=== PATIENT | female | born 1965 | race Caucasian/White ===

== ENCOUNTER 2017-06-19 09:19 | Emergency (ER) | payer MEDICAID ==
[~2017-06-19] VITALS: Ht 157.5 cm; Wt 86.6 kg
[~2017-06-19 09:19] MED LIST: ALBU17AE23 IH; ALPR0.5T PO; FURO40TA4 PO; HYDR-3458 PO; LISI20TA PO; PRCD5U PO; ROPI1TAB PO; SMV20T PO
--- NOTE | 2017-06-19 09:33 | ED Lower Extremity ---
General Chief Complaint: Lower Extremity Stated Complaint: R FOOT/LEG PAIN Source: patient History of Present Illness Time seen by provider: 09:30 Initial Comments PT IS HERE VISITING HER MOTHER IN HOSPITAL LAST PM, SHE WAS ASSISTING HER MOTHER TRANSFER OFF THE COMMODE TO THE BED, AND MOTHER LOST BALANCE AND SHE FELL/LEANED HARD AGAINST PT. 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 PALENCIA ORTHO: DR. ANAND Allergies and Home Medications Allergies Coded Allergies: Aspirin (Unverified Allergy, N/V, 05/21/10) Azithromycin (Unverified Allergy, SOB, SWELLING, HIVES, 05/21/10) Erythromycin Base (Unverified Allergy, SORES AROUND MOUTH, 05/21/10) Gabapentin (Unverified Allergy, SORES AROUND MOUTH, 05/21/10) Pregabalin (Unverified Allergy, SORES AROUND MOUTH, ITCHING, 05/21/10) Tetracycline (Unverified Allergy, SORES AROUND MOUTH, 05/21/10) Home Medications Albuterol 17 Gm Aerosol, 17 GM IH NEEDED, (Reported) Alprazolam 0.5 Mg Tablet, 0.5 MG PO for ANXIETY, (Reported) Hydrocodone/Acetaminophen 1 Each Tablet, 1 EACH PO for PAIN, (Reported) Lisinopril 20 Mg Tablet, 1 EACH PO DAILY, (Reported) Simvastatin 20 Mg Tab, 20 MG PO HS, (Reported) Constitutional: no symptoms reported Musculoskeletal: see HPI Skin: no symptoms reported Psychiatric/Neurological: See HPI, Tingling (IN RIGHT FOOT/TOES) Past Liydfpg-Khdgpw-Iqqgwb Hx Patient Social History Type Used: Cigarettes Former Smoker/When Quit: Jul 16, 2008 Recent Foreign Travel: No Contact w/Someone Who Travel: No Surgeries HX Surgeries: Yes (2 leg amputations--HAS LEFT BKA; hysterectomy, gallbladder , , 3 surgeries on LEFT LEG) Surgeries: Amputation, Section, Gallbladder, Hysterectomy, Orthopedic Respiratory Hx Respiratory Disorders: Yes Respiratory Disorders: Asthma Cardiovascular Hx Cardiac Disorders: No Neurological Hx Neurological Disorders: No Reproductive System Hx Reproductive Disorders: No Sexually Transmitted Disease: No Genitourinary Hx Genitourinary Disorders: No Gastrointestinal Hx Gastrointestinal Disorders: No Musculoskeletal Hx Musculoskeletal Disorders: Yes (LEFT BKA FROM OSTEOMYELITIS) Musculoskeletal Disorders: Amputee Endocrine Hx Endocrine Disorders: No HEENT HX ENT Disorders: No Cancer Hx Cancer: No Psychosocial Hx Psychiatric Problems: No Integumentary HX Skin/Integumentary Disorder: Yes (OSTEOMYELITIS) Blood Transfusions Hx Blood Disorders: No Physical Exam Vital Signs Vital Sign - Last 12Hours 06/19/17 09:31 Temp 97.5 Pulse 71 Resp 18 B/P (MAP) 148/90 Pulse Ox 97 O2 Delivery Room Air Capillary Refill : General Appearance: WD/WN, no apparent distress Cardiovascular: normal peripheral pulses (+3/4) Hips: right hip non-tender Legs: right leg other (TENDERNESS TO RIGHT LOWER LEG) Knees: right knee other (TENDERNESS TO RIGHT KNEE) Ankles: right ankle other (TENDERNESS TO RIGHT ANKLE) Feet: right foot other (TENDERNESS TO RIGHT FOOT. 1+ EDEMA OF RIGHT FOOT AND LEG. MOTOR/SENSORY/VASCULAR INTACT ON RIGHT. 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, no motor/sensory deficits, alert, normal mood/affect, oriented x 3 Skin: normal color, warm/dry, other (NO EXTERNAL EVIDENCE OF TRAUMA) Progress/Results/Core Measures Results/Orders My Orders Orders - PAT NAJERA DO Tibia/Fibula, Right, 2 Views (06/19/17 09:38) Knee, Right, 3 Views (06/19/17 09:38) Foot, Right, 3 View (06/19/17 09:38) Vital Signs/I&O Vital Sign - Last 12Hours 06/19/17 09:31 Temp 97.5 Pulse 71 Resp 18 B/P (MAP) 148/90 Pulse Ox 97 O2 Delivery Room Air Diagnostic Imaging Comments XRAYS RIGHT FOOT, TIB/FIB, KNEE--NO ACUTE PROCESS, PER RADIOLOGIST REPORT @ 1025 Reviewed: Reviewed by Me Departure Impression Impression: Primary Impression: RIGHT FOOT AND LEG STRAIN Disposition: HOME, SELF-CARE Condition: Stable Departure-Patient Inst. Referrals: NO,LOCAL PHYSICIAN (PCP) Primary Care Physician LORENA PALENCIA MD, ROBERT F DO Patient Instructions: Sprain (DC) Add. Discharge Instructions: ACTIVITIES TOLERATED TYLENOL AND MOTRIN AND YOUR HOME HYDROCODONE NEEDED FOR PAIN USE YOUR WALKER AT ALL TIMES FOLLOW UP WITH YOUR DR IN 1 WEEK IF NO IMPROVEMENT All discharge instructions reviewed with patient and/or family. Voiced understanding. PAT NAJERA DO Jun 19, 2017 09:33
--- NOTE | 2017-06-19 10:07 | Diagnostic Imaging Report ---
FOOT, RIGHT, 3 VIEW COMPARISON: None available. INDICATION: Right foot pain. TECHNIQUE: Non-weight bearing AP, oblique, and lateral views of the foot. FINDINGS: No fracture or traumatic malalignment. No evidence of metatarsal stress fracture. Normal osseous mineralization. No discrete soft tissue swelling. IMPRESSION: 1. No acute fracture or traumatic malalignment. Dictated by: Dictated on workstation # [id number]
--- NOTE | 2017-06-19 10:08 | Diagnostic Imaging Report ---
INDICATION: Right knee pain. COMPARISON: Right knee radiographs of 03/12/2016. TECHNIQUE: 3 nonweightbearing views of right knee. FINDINGS: There is no acute fracture or traumatic malalignment. Joint spaces are well-maintained. No mineralized loose bodies. No knee joint effusion. IMPRESSION: Negative right knee radiographs. Dictated by: Dictated on workstation # [id number]
--- NOTE | 2017-06-19 10:13 | Diagnostic Imaging Report ---
INDICATION: Right lower leg pain. COMPARISON: Right knee radiograph performed concurrently. FINDINGS AND IMPRESSION: 1. No fracture or focal osseous lesion. 2. No soft tissue abnormality of the right lower leg by radiography. Dictated by: Dictated on workstation # [id number]
[2017-06-19 10:48] VITALS: BP 140/100
== END 2017-06-19 10:48 | disposition home or self-care (01) ==
LOC: EDUNIT# 09:19 → ER 09:21
DX: S86.911A Strain of unspecified muscle(s) and tendon(s) at lower leg level, right leg, initial encounter (principal); J45.909 Unspecified asthma, uncomplicated; Z89.512 Acquired absence of left leg below knee; Z90.710 Acquired absence of both cervix and uterus; Z87.59 Personal history of other complications of pregnancy, childbirth and the puerperium; Z98.890 Other specified postprocedural states; W51.XXXA Accidental striking against or bumped into by another person, initial encounter
CPT/HCPCS: 73562; 73590; 73630; 99283

== ENCOUNTER 2018-12-01 15:29 | Emergency (ER) | payer MEDICAID ==
[~2018-12-01] VITALS: Ht 157.5 cm; Wt 90.3 kg
--- OUTSIDE RECORDS SUMMARY | 2018-12-01 15:35 | XMS REPORT | Encounter Summary ---
Author Author [facility] Organization [facility] Address Unknown Phone Unavailable Care Team Providers Care Tandem Operator Name Role Phone Desmond Martinez MD Unavailable Anibal Kuhn MD Unavailable Chayito Evans MD Unavailable Graham Pichardo MD Unavailable Kaity Bronson RD Unavailable No Pcp, Na PCP Unavailable Encounter Details Care Team Description Date Type Department Karissa Sharif MD [address] [facility] [address] [place], [place] [id number] Arrived 11/27/2018 Hospital [facility] Radiology [address] [facility] [address] [place], [place] [id number] Social History Date Tobacco Use Types Packs/Day Years Used Quit: 11/14/1995 Former Smoker Cigarettes Smokeless Tobacco: Never Used Alcohol Use Drinks/Week oz/Week Comments Yes rarely Sex Assigned at Date Recorded Not on file Industry Job Start Date Occupation Not on file Not on file Not on file Travel End Travel History Travel Start No recent travel history available. as of this encounter Functional Status Date of Assessment Functional Status Response 08/02/2018 Does the patient have a hearing impairment: No 08/02/2018 Does the patient have a visual impairment: Yes 08/02/2018 Does the patient have impaired ambulation: Yes 08/02/2018 Does the patient have an activity of daily living No (ADL) impairment: 08/02/2018 Does the patient have an instrumental activity of No daily living (IADL) impairment: Date of Assessment Cognitive Status Response 08/02/2018 Does the patient have a cognitive impairment: Yes as of this encounter Plan of Treatment Not on fileas of this encounter Procedures Comments Procedure Name Priority Date/Time Associated Diagnosis US TRANSVAGINAL Routine 11/27/2018 Pelvic pain 7:38 AM [employer]IST US PELVIS NON OB COMP Routine 11/27/2018 Pelvic pain 7:38 AM VISITOR SERVICES SPECIALIST in this encounter Results * US TRANSVAGINAL (11/27/2018 7:38 AM VISITOR SERVICES SPECIALIST) Impressions Performed At Prior hysterectomy with unremarkable ultrasound appearance of the vaginal cuff. [facility] No evidence of pelvic mass. Approved by Mitch Leonardo M.D. on 11/27/2018 11:47 AM By my electronic signature, I attest that I have personally reviewed the images for this examination and formulated the interpretations and opinions expressed in this report Finalized by Macho Lopez M.D. on 11/27/2018 5:55 PM. Dictated by Mitch Leonardo M.D. on 11/27/2018 8:55 AM. Narrative Performed At Ultrasound of the pelvis [facility] Clinical Indication: Female, 52 years; pelvic pain, previous hysterectomy. Technique: Multiple grayscale sonographic images were obtained of the pelvis transvaginally and transabdominally, with additional color Doppler and spectral Doppler acquisitions. Comparison: None. Findings: Uterus is not visualized compatible with reported hysterectomy. Ovaries are not visualized. The right and left adnexa are unremarkable. Vaginal cuff is unremarkable without significant increased internal blood flow. No evidence of pelvic mass. There is no significant pelvic free fluid. Procedure Note Interface, Radiant Results - 11/27/2018 5:58 PM VISITOR SERVICES SPECIALIST Ultrasound of the pelvis Clinical Indication: Female, 52 years; pelvic pain, previous hysterectomy. Technique: Multiple grayscale sonographic images were obtained of the pelvis transvaginally and transabdominally, with additional color Doppler and spectral Doppler acquisitions. Comparison: None. Findings: Uterus is not visualized compatible with reported hysterectomy. Ovaries are not visualized. The right and left adnexa are unremarkable. Vaginal cuff is unremarkable without significant increased internal blood flow. No evidence of pelvic mass. There is no significant pelvic free fluid. IMPRESSION Prior hysterectomy with unremarkable ultrasound appearance of the vaginal cuff. No evidence of pelvic mass. Approved by Mitch Leonardo M.D. on 11/27/2018 11:47 AM By my electronic signature, I attest that I have personally reviewed the images for this examination and formulated the interpretations and opinions expressed in this report Finalized by Macho Lopez M.D. on 11/27/2018 5:55 PM. Dictated by Mitch Leonardo M.D. on 11/27/2018 8:55 AM. Performing Organization Address City/State/Zipcode Phone Number [facility] * US PELVIS NON OB COMP (11/27/2018 7:38 AM VISITOR SERVICES SPECIALIST) Impressions Performed At Prior hysterectomy with unremarkable ultrasound appearance of the vaginal cuff. [facility] No evidence of pelvic mass. Approved by Mitch Leonardo M.D. on 11/27/2018 11:47 AM By my electronic signature, I attest that I have personally reviewed the images for this examination and formulated the interpretations and opinions expressed in this report Finalized by Macho Lopez M.D. on 11/27/2018 5:55 PM. Dictated by Mitch Leonardo M.D. on 11/27/2018 8:55 AM. Narrative Performed At Ultrasound of the pelvis [facility] Clinical Indication: Female, 52 years; pelvic pain, previous hysterectomy. Technique: Multiple grayscale sonographic images were obtained of the pelvis transvaginally and transabdominally, with additional color Doppler and spectral Doppler acquisitions. Comparison: None. Findings: Uterus is not visualized compatible with reported hysterectomy. Ovaries are not visualized. The right and left adnexa are unremarkable. Vaginal cuff is unremarkable without significant increased internal blood flow. No evidence of pelvic mass. There is no significant pelvic free fluid. Procedure Note Interface, Radiant Results - 11/27/2018 5:58 PM VISITOR SERVICES SPECIALIST Ultrasound of the pelvis Clinical Indication: Female, 52 years; pelvic pain, previous hysterectomy. Technique: Multiple grayscale sonographic images were obtained of the pelvis transvaginally and transabdominally, with additional color Doppler and spectral Doppler acquisitions. Comparison: None. Findings: Uterus is not visualized compatible with reported hysterectomy. Ovaries are not visualized. The right and left adnexa are unremarkable. Vaginal cuff is unremarkable without significant increased internal blood flow. No evidence of pelvic mass. There is no significant pelvic free fluid. IMPRESSION Prior hysterectomy with unremarkable ultrasound appearance of the vaginal cuff. No evidence of pelvic mass. Approved by Mitch Leonardo M.D. on 11/27/2018 11:47 AM By my electronic signature, I attest that I have personally reviewed the images for this examination and formulated the interpretations and opinions expressed in this report Finalized by Macho Lopez M.D. on 11/27/2018 5:55 PM. Dictated by Mitch Leonardo M.D. on 11/27/2018 8:55 AM. Performing Organization Address City/State/Zipcode Phone Number [facility] in this encounter Visit Diagnoses Diagnosis Pelvic pain in this encounter
--- OUTSIDE RECORDS SUMMARY | 2018-12-01 15:35 | XMS REPORT | Clinical Summary ---
Author Author [facility] Organization [facility] Address Unknown Phone Unavailable Care Team Providers Care Compressor Engineer Name Role Phone Desmond Martinez MD Unavailable Anibal Kuhn MD Unavailable Chayito Evans MD Unavailable Graham Pichardo MD Unavailable Kaity Bronson RD Unavailable No Pcp, Na PCP Unavailable Source Comments Some departments are not documenting in the electronic medical record. If you do not see the information that you expected, contact Release of Information in the Health Information Management department at [phone] for further assistance in locating additional records.[facility] Allergies Comments Active Allergy Reactions Severity Noted Date Allergy recorded in SMS: Aspirin~Reactions: GI UPSET Aspirin 03/02/2007 Allergy recorded in SMS: Zithromax~Reactions: ANAPHYLAXIS Azithromycin 08/27/2005 Allergy recorded in SMS: ERYTHROMYCIN~Reactions: NAUSEA Erythromycin 08/27/2005 Allergy recorded in SMS: NEURONTIN~Reactions: RASH Gabapentin 06/02/2007 Vomits up Blood. Ibuprofen VOMITING Low 01/27/2017 Mouth Sores Pregabalin SEE COMMENTS 02/18/2011 Allergy recorded in SMS: TETRACYCLINE~Reactions: MOUTH SORES Tetracycline 08/27/2005 Medications End Date Status Medication Sig Dispensed Refills Start Date Active SIMVASTATIN (ZOCOR PO) Take by 0 mouth daily. Active HYDROCODONE Take by 0 BIT/ACETAMINOPHEN mouth as (VICODIN PO) Needed. Active ALPRAZOLAM (XANAX PO) Take 1 Tab by 0 mouth as Needed (up to three a day). Active ALBUTEROL SULFATE Inhale 2 0 (VENTOLIN IN) Puffs by mouth as Needed. Active ONDANSETRON HCL (ZOFRAN Take 4 mg by 0 PO) mouth as Needed. Active furosemide (LASIX) 20 mg Take 40 mg by 0 tablet mouth every morning. Active potassium chloride SR Take 20 mEq 0 (K-DUR) 20 mEq tablet by mouth daily. Take with a meal and a full glass of water. Active atorvastatin (LIPITOR) 40 Take 40 mg by 0 mg tablet mouth daily. Active mupirocin (BACTROBAN) 2 % Apply 0 topical ointment topically to affected area three times daily. Active MULTIVITAMIN WITH Take by 0 MINERALS (MULTIVITAMIN & mouth. MINERAL FORMULA PO) Active cholecalciferol (VITAMIN Take 6,000 0 D-3) 1,000 units tablet Units by mouth daily. Active aspirin EC 81 mg tablet Take 81 mg by 0 mouth daily. Take with food. Active METOPROLOL TARTRATE PO Take by 0 mouth. Active magnesium 0 Active fenofibrate (LIPOFEN) 50 Take 164 mg 0 mg capsule by mouth daily. Take with food. Active BENEFIBER (WHEAT DEXTRIN) Take 50 g/day 0 POIndications: lower by mouth triglycerides daily. Active amitriptyline (ELAVIL) 25 Take one 90 tablet 3 02/14/201 mg tabletIndications: tablet by 8 Migraine Prevention, mouth at Neuropathic Pain bedtime for two weeks. If tolerated, increase to two tablets by mouth at bedtime daily. Active Problems Problem Noted Date Personal history of ovarian cancer 01/05/2017 Left breast mass 01/05/2017 Overview: DIAGNOSIS: Left breast lump/pain HISTORY: Ms. Diop is a female who presented [facility] on [facility]06[facility]2017 at age 51 for evaluation of left breast lump and pain. She felt a left breast lump 6 months to 1 year earlier. She has had intermittent left breast pain for the past 6 months. BREAST IMAGING: Mammogram: -- Bilateral screening mammogram 01/14/15 ([place], [place]) revealed scattered fibroglandular densities. There were no suspicious masses, calcifications or architectural distortion. REPRODUCTIVE HEALTH: Age at first Menarche: 11 Age at First Live : 17 Age at Menopause: Surgical menopause in 1992, took HRT x 3-5 years : 9 Para: 4 : 8 months total PERTINENT PMH: Personal history of cervical cancer, asthma FAMILY HISTORY: Mother with breast cancer, sister with breast cancer, Maternal Aunt-Breast cancer, Maternal Great Grandmother-Breast cancer, 3 Maternal Great Aunts-Breast cancer PHYSICAL EXAM on PRESENTATION: Right - No palpable breast masses. No skin, nipple, or areolar change. Tenderness in IMF. Nipple pulls in with arm raised. Left - No palpable breast masses. No skin, nipple, or areolar change. Tenderness in IMF and UOQ. Increased density in UOQ. Nipple pulls in with arm raised. No supraclavicular or axillary adenopathy. REFERRED BY: Self Hypokalemia 11/20/2015 Lethargy 11/20/2015 Non morbid obesity 11/20/2015 Status post below knee amputation of left lower extremity 11/20/2015 Overview: Due to poorly healing fx with infection episodes of Visual blurriness 11/20/2015 Sleep apnea 11/20/2015 Asthma 11/20/2015 High cholesterol 11/20/2015 Fever 02/18/2011 Diarrhea 02/18/2011 Sweating 02/18/2011 Multiple URI 02/18/2011 Encounters Care Team Description Date Type Specialty Chico Martin MD General Question 11/28/2018 Telephone Obstetrics & Gynecology Chico Martin MD Arrived 11/27/2018 [facility] Radiology Encounter Chico Martin MD Encounter for screening for malignant neoplasm of cervix 11/22/2018 Hospital Lab Encounter Chico Martin MD Pelvic pain (Primary Dx); Vaginal pain; Cervical cancer screening; Urinary incontinence, unspecified type; Establishing care with new doctor, encounter for; Vaginal atrophy 11/22/2018 Office Visit Obstetrics & Gynecology Sita Johnson, NANCY Other (Patient left a voice message wanting to know if would be able to give her a referral to a [facility] Sc[facility] Single doctor due to concerns within her vaginal area. I spoke with Dr. Lawrence about the patient's concerns and she granted the referral. I spoke with the patient about putting in the referral to which she then told me she had made an appointment with Dr. Chico Martin for 11/22/2018. The patient was concerned with not having an earlier appointment. ) 10/31/2018 Telephone Oncology Selma Lawrence MD Atrophy of vagina (Primary Dx) 10/31/2018 Orders Only Oncology from Last 3 Months Family History Medical History Relation Name Comments Cancer Brother Cancer Father skin Heart Attack Father Heart Failure Father Hypertension Father Stroke Father Cancer-Breast Maternal Aunt Cancer-Breast Mother Hypertension Mother Cancer-Breast Other 3 mat gr aunts Cancer-Breast Other mat gr gma Cancer-Breast Sister Anesthetic Complication Neg Hx Arthritis Neg Hx Bleeding Disorders Neg Hx Cancer-Colon Neg Hx Cancer-Ovarian Neg Hx Cancer-Uterine Neg Hx Cervical Cancer Neg Hx Cleft Lip Neg Hx Cleft Palate Neg Hx Diabetes Neg Hx Heart Disease Neg Hx Migraines Neg Hx Miscarriages Neg Hx Rashes/Skin Problems Neg Hx Seizures Neg Hx Thyroid Disease Neg Hx Unknown to Patient Neg Hx VTE Neg Hx Relation Name Status Comments Brother Father Maternal Aunt Mother Other Other Sister Social History Date Tobacco Use Types Packs/Day Years Used Quit: 11/14/1995 Former Smoker Cigarettes Smokeless Tobacco: Never Used Alcohol Use Drinks/Week oz/Week Comments Yes rarely Sex Assigned at Date Recorded Not on file Industry Job Start Date Occupation Not on file Not on file Not on file Travel End Travel History Travel Start No recent travel history available. Last Filed Vital Signs Time Taken Vital Sign Reading 11/22/2018 8:10 AM MACHINE TECH Blood Pressure 130/83 11/22/2018 8:10 AM MACHINE TECH Pulse 81 08/02/2018 9:53 AM CDT Temperature 36.7 C (98 F) 08/02/2018 9:53 AM CDT Respiratory Rate 16 08/02/2018 9:53 AM CDT Oxygen Saturation 98% - Inhaled Oxygen - Concentration 11/22/2018 8:10 AM MACHINE TECH Weight 93.7 kg (206 lb 9.6 oz) 11/22/2018 8:10 AM MACHINE TECH Height 157.5 cm (5' 2") 11/22/2018 8:10 AM MACHINE TECH Body Mass Index 37.79 Plan of Treatment Health Maintenance Due Date Last Done Comments PHYSICAL (COMPREHENSIVE) 1970 EXAM HIV SCREENING 1978 DTAP/TDAP VACCINES (1 - 1981 Tdap) COLORECTAL CANCER 2013 SCREENING SHINGLES RECOMBINANT 2013 VACCINE (1 of 2) INFLUENZA VACCINE 06/14/2018 BREAST CANCER SCREENING 02/02/2019 02/02/2018, 01/06/2017 CERVICAL CANCER SCREENING 11/22/2021 11/22/2018 HEPATITIS C SCREENING Completed 03/06/2007 Procedures Comments Procedure Name Priority Date/Time Associated Diagnosis US TRANSVAGINAL Routine 11/27/2018 Pelvic pain 7:38 AM MACHINE TECH US PELVIS NON OB COMP Routine 11/27/2018 Pelvic pain 7:38 AM MACHINE TECH PAP THIN PREP 11/22/2018 11:17 AM MACHINE TECH from Last 3 Months Results * US TRANSVAGINAL (11/27/2018 7:38 AM MACHINE TECH) Impressions Performed At Prior hysterectomy with unremarkable [...] Interface, Radiant Results - 11/27/2018 5:58 PM MACHINE TECH Ultrasound of the pelvis Clinical Indication: Female, [...] PELVIS NON OB COMP (11/27/2018 7:38 AM MACHINE TECH) Impressions Performed At Prior hysterectomy with unremarkable [...] Interface, Radiant Results - 11/27/2018 5:58 PM MACHINE TECH Ultrasound of the pelvis Clinical Indication: Female, [...] City/State/Zipcode Phone Number [facility] RESULTS * PAP THIN PREP (11/22/2018 11:17 AM MACHINE TECH) Cytology [facility] [email or web address] Department of Pathology and Laboratory Medicine [address] [place] [address]. Office:[phone] CYTOLOGY REPORT NAME: HEATHER MUNGUIA CYTOLOGY #: [id number] MR #: [id number] ALT ID #: [id number] #: [id number] [place] [facility] [place] DATE OF PROCEDURE: 11/22/2018 11:17 AGE:52 SEX: F DATE RECEIVED: 11/23/2018 : 1965 TIME RECEIVED: 11:17 PHYSICIAN: CHICO MARTIN MD DATE OF REPORT: 11/24/2018 COPY TO: DATE OF PRINTIN11/24/2018 HISTORY: Date of Last Menstrual Period: None Given Menstrual History: Post-menopausal Contraceptive History: None Cancer History: No history cancer Infection History: None Given Treatment History: None Other Clinical Conditions: None Given MATERIAL RECEIVED: A: Thin Prep Pap Test-Cervical /Vaginal Cytologic Material ############################## ############################## ############ Final Diagnosis: A.Thin Prep Pap Test-Cervical /Vaginal Cytologic Material: Satisfactory for evaluation. Negative for intraepithelial lesion or malignancy. This specimen was sent for HPV testing.See comment for HPV testing results. Comment HPV, High Risk: Negative [employer] Gen-Probe APTIMA HR-HPV Assay is a FDA approved in vitro nucleic acid amplification test for the qualitative detection of E6/E7 viral messenger RNA (mRNA) from 14 high-risk types of human papillomavirus (HPV) in cervical specimens. The high-risk HPV types detected by the assay include: 16, 18, 31, 33, 35, 39, 45, 51, 52, 56, 58, 59, 66, and 68.The assay has been validated by the Department of Pathology and Laboratory Medicine at [facility] using [employer] System. The primary screening of this case is performed at the [facility], [address] [place] [address]. Attestation: By this signature, I attest that I have personally formulated the final interpretation expressed in this report and that the above diagnosis is based upon my examination of the slides and/or other material indicated in this report. spv/11/24/2018 +++Electronically Signed Out By LAZARUS ALANIZ(ASCP)+++ Cervical cytology is a SCREENING TEST primarily for detecting cancers and precancerous lesions.This screening test has a well documented false negative rate.Your patient's pap test results should be interpreted in conjunction with history and clinical findings.Reported using [place] System terminology. ############################## ############################## ############ Performing Organization Address City/State/Zipcode Phone Number [facility] [address] [place] [address] from Last 3 Months Insurance Payer Benefit Subscriber ID Type Phone Address Plan / Group [facility] MEDICAID [facility] xxxxxxxxxxx Medicaid [place] Heather Munguia Third Self 1965 [address] [place] ([place]) [place] [address] Liability Advance Directives Patient has advance care planning documents on file. For more information, please contact: [facility] [address] [place] [address]
--- OUTSIDE RECORDS SUMMARY | 2018-12-01 15:35 | XMS REPORT | Encounter Summary ---
Author Author [facility] Organization [facility] Address Unknown Phone Unavailable Care Team Providers Care Professor/Nurse Anesthetist Name Role Phone Desmond Martinez MD Unavailable Anibal Kuhn MD Unavailable Chayito Evans MD Unavailable Graham Pichardo MD Unavailable Kaity Bronson RD Unavailable No Pcp, Na PCP Unavailable Reason for Referral * Consult, Test & Treat (Urgent) Referred By Contact Referred To Contact Status Reason Specialty Diagnoses / Procedures Selma Lawrence MD [address] [address] [facility] Level [address] [place] [address] No Auth Needed Specialty Services Obstetrics & Diagnoses Required Gynecology Atrophy of vagina Encounter Details Care Team Description Date Type Department Selma Lawrence MD [address] [address] Atrophy of vagina (Primary Dx) 10/31/2018 Orders Only [facility] [address] [place] [address] Social History Date Tobacco Use Types Packs/Day [...] as of this encounter Plan of Treatment Order Schedule Name Priority Associated Diagnoses Ordered: 10/31/2018 AMB REFERRAL TO OB-SOCIAL GROUP WORKER Routine Atrophy of vagina as of this encounter Visit Diagnoses Diagnosis Atrophy of vagina - Primary Postmenopausal atrophic vaginitis in this encounter
--- OUTSIDE RECORDS SUMMARY | 2018-12-01 15:35 | XMS REPORT | Encounter Summary ---
Author Author [facility] Organization [facility] Address Unknown Phone Unavailable Care Team Providers Care Principal Architectural Firm Name Role Phone Desmond Martinez MD Unavailable Anibal Kuhn MD Unavailable Chayito Evans MD Unavailable Graham Pichardo MD Unavailable Kaity Bronson RD Unavailable No Pcp, Na PCP Unavailable Encounter Details Care Team Description Date Type Department Karissa Martin MD [address] [place] [address] Encounter for screening for malignant neoplasm of cervix 11/22/[address] [facility] [address] [place] [address] Social History Date Tobacco Use Types Packs/Day [...] cognitive impairment: Yes as of this encounter Medications at Time of Discharge Start Date End Date Medication Sig Dispensed Refills ALBUTEROL SULFATE Inhale 2 0 (VENTOLIN IN) Puffs by mouth as Needed. ALPRAZOLAM (XANAX PO) Take 1 Tab by 0 mouth as Needed (up to three a day). 02/14/2018 amitriptyline (ELAVIL) 25 Take one 90 tablet 3 mg tabletIndications: tablet by Migraine Prevention, mouth at Neuropathic Pain bedtime for two weeks. If tolerated, increase to two tablets by mouth at bedtime daily. aspirin EC 81 mg tablet Take 81 mg by 0 mouth daily. Take with food. atorvastatin (LIPITOR) 40 Take 40 mg by 0 mg tablet mouth daily. BENEFIBER (WHEAT DEXTRIN) Take 50 g/day 0 POIndications: lower by mouth triglycerides daily. cholecalciferol (VITAMIN Take 6,000 0 D-3) 1,000 units tablet Units by mouth daily. fenofibrate (LIPOFEN) 50 Take 164 mg 0 mg capsule by mouth daily. Take with food. furosemide (LASIX) 20 mg Take 40 mg by 0 tablet mouth every morning. HYDROCODONE Take by 0 BIT/ACETAMINOPHEN mouth as (VICODIN PO) Needed. magnesium 0 METOPROLOL TARTRATE PO Take by 0 mouth. MULTIVITAMIN WITH Take by 0 MINERALS (MULTIVITAMIN & mouth. MINERAL FORMULA PO) mupirocin (BACTROBAN) 2 % Apply 0 topical ointment topically to affected area three times daily. ONDANSETRON HCL (ZOFRAN Take 4 mg by 0 PO) mouth as Needed. potassium chloride SR Take 20 mEq 0 (K-DUR) 20 mEq tablet by mouth daily. Take with a meal and a full glass of water. SIMVASTATIN (ZOCOR PO) Take by 0 mouth daily. as of this encounter Plan of Treatment Not on fileas of this encounter Procedures Comments Procedure Name Priority Date/Time Associated Diagnosis PAP THIN PREP 11/22/2018 11:17 AM DEAL ARCHITECT in this encounter Results * PAP THIN PREP (11/22/2018 11:17 AM DEAL ARCHITECT) Cytology [facility] [email or web address] Department of Pathology and Laboratory Medicine [address] [place] [address]. Office:[phone] CYTOLOGY REPORT NAME: HEATHER MUNGUIA CYTOLOGY #: [id number] MR #: [id number] ALT ID #: [id number] #: [id number] [place] [facility] [place] OF PROCEDURE: 11/22/2018 11:17 AGE:52 SEX: F DATE RECEIVED: 11/23/2018 : 1965 TIME RECEIVED: 11:17 PHYSICIAN: KARISSA MARTIN MD DATE OF REPORT: 11/24/2018 COPY [...] testing results. Comment HPV, High Risk: Negative [employer] Gen-Probe APTIMA HR-HPV Assay is a FDA [...] Department of Pathology and Laboratory Medicine at [facility] using [employer] Gen-Probe [place] System. The primary screening of this case is performed at the [facility], [address] [place] [address]. Attestation: By this signature, I attest that [...] conjunction with history and clinical findings.Reported using [place] System terminology. ############################## ############################## ############ Performing Organization Address City/State/Zipcode Phone Number [facility] [address] [place] [address] in this encounter Visit Diagnoses Not on filein this encounter
--- OUTSIDE RECORDS SUMMARY | 2018-12-01 15:35 | XMS REPORT | Encounter Summary ---
Author Author [facility] Organization [facility] Address Unknown Phone Unavailable Care Team Providers Care Machine Boss Name Role Phone Desmond Martinez MD Unavailable Anibal Kuhn MD Unavailable Chayito Evans MD Unavailable Graham Pichardo MD Unavailable Kaity Bronson RD Unavailable No Pcp, Na PCP Unavailable Reason for Visit * Reason Comments Other Patient left a voice message wanting to know if would be able to give her a referral to a [facility] doctor due to concerns within her vaginal area. I spoke with Dr. Lawrence about the patient's concerns and she granted the referral. I spoke with the patient about putting in the referral to which she then told me she had made an appointment with Dr. Karissa Martin for 11/22/2018. The patient was concerned with not having an earlier appointment. Encounter Details Care Team Description Date Type Department Sita Johnson RN Other (Patient left a voice message wanting to know if would be able to give her a referral to a [facility] Control Operator doctor due to concerns within her vaginal area. I spoke with Dr. Lawrence about the patient's concerns and she granted the referral. I spoke with the patient about putting in the referral to which she then told me she had made an appointment with Dr. Karissa Martin for 11/22/2018. The patient was concerned with not having an earlier appointment. ) 10/31/[address] [address] Social History Date Tobacco Use Types Packs/Day [...] cognitive impairment: Yes as of this encounter Miscellaneous Notes * Telephone Encounter - Sita Johnson RN - 10/31/2018 1:44 PM DOUBLE CORNER CUTTER Patient left a voice message wanting to know if would be able to give her a referral to a [facility] Control Operator doctor due to concerns within her vaginal area. I spoke with Dr. Lawrence about the patient's concerns and she granted the referral. I spoke with the patient about putting in the referral to which she then told me she had made an appointment with Dr. Karissa Martin for 11/22/2018. The patient was concerned with not having an earlier appointment. I am currently waiting for a call back in order to see if any other appointments are available. I let the patient know I would be back in touch with her when I found out more information. LE CORNER CUTTER in this encounter Plan of Treatment Not on fileas of this encounter Visit Diagnoses Not on filein this encounter
--- OUTSIDE RECORDS SUMMARY | 2018-12-01 15:35 | XMS REPORT | Encounter Summary ---
Author Author [facility] Organization [facility] Address Unknown Phone Unavailable Care Team Providers Care Director Of Kids Name Role Phone Desmond Martinez MD Unavailable Anibal Kuhn MD Unavailable Chayito Evans MD Unavailable Graham Pichardo MD Unavailable Kaity Bronson RD Unavailable No Pcp, Na PCP Unavailable Reason for Referral * Consult, Test & Treat (Routine) Referred By Contact Referred To Contact Status Reason Specialty Diagnoses / Procedures Karissa Martin MD [address] [facility] [address] [place] [address] Jennifer Sanchez MD [address] [facility] [address] [place] [address] New Request Specialty Services General Internal Diagnoses Required Medicine Establishing care with new doctor, encounter for * Consult, Test & Treat (Routine) Referred By Contact Referred To Contact Status Reason Specialty Diagnoses / Procedures Karissa Martin MD [address] [facility] [address] [place] [address] [facility] Level [address]C [address] [place] [address] No Auth Needed Specialty Services [facility] [facility] Diagnoses Required Urinary incontinence, unspecified type R32 (ICD-10-CM) - Urinary incontinence, unspecified type Reason for Visit * Reason Comments Pelvic Pain * Consult, Test & Treat (Urgent) Referred By Contact Referred To Contact Status Reason Specialty Diagnoses / Procedures Selma Lawrence MD [address] [facility] [address] [place] [address] [facility] Level 5B [address] [place] [address] No Auth Needed Specialty Services Obstetrics & Diagnoses Required Gynecology Atrophy of vagina Encounter Details Care Team Description Date Type Department Karissa Martin MD [address] [facility] [address] [place] [address] Pelvic pain (Primary Dx); Vaginal pain; Cervical cancer screening; Urinary incontinence, unspecified type; Establishing care with new doctor, encounter for; Vaginal atrophy 11/22/2018 Office Visit [facility] - OBGYN [facility] Level 5B [address] [place] [address] Social History Date Tobacco Use Types Packs/Day Years Used Quit: 11/14/1995 Former Smoker Cigarettes Smokeless Tobacco: Never Used Alcohol Use Drinks/Week oz/Week Comments Yes rarely Sex Assigned at Date Recorded Not on file Industry Job Start Date Occupation Not on file Not on file Not on file Travel End Travel History Travel Start No recent travel history available. as of this encounter Last Filed Vital Signs Time Taken Vital Sign Reading 11/22/2018 8:10 AM ONLINE PUBLISHER Blood Pressure 130/83 11/22/2018 8:10 AM ONLINE PUBLISHER Pulse 81 - Temperature - - Respiratory Rate - - Oxygen Saturation - - Inhaled Oxygen - Concentration 11/22/2018 8:10 AM ONLINE PUBLISHER Weight 93.7 kg (206 lb 9.6 oz) 11/22/2018 8:10 AM ONLINE PUBLISHER Height 157.5 cm (5' 2") 11/22/2018 8:10 AM ONLINE PUBLISHER Body Mass Index 37.79 in this encounter Functional Status Date of Assessment [...] cognitive impairment: Yes as of this encounter Patient Instructions * Patient Instructions* Carlotta Rudolph LPN - 11/22/2018 8:15 AM ONLINE PUBLISHER General Instructions To Contact Me: Please send a [employer] message to [employer] or call to reach your doctors nurse team. To Have Medication Refilled: Please use the [employer] Refill request or contact your pharmacy directly to request medication refills. Please allow 72 hours. To Receive Your Test Results: You will receive your test results in person at your appointment, or by [employer] if you are signed up. We prefer to discuss test results during your appointment time, so please try to have your labs done several days before your next routine visit. If unable to discuss in person, your results will either be sent to you via [employer], by telephone, or by letter. If you are expecting results and have not heard from my office within 2 weeks of your testing, please send a [employer] message or call my office. Our Lab (Location, Hours, and Fasting Information) Lab Location: the 1st floor of the Medical Office Building, directly to the left of the Information Desk. Lab Hours: Tuesday 6:30 am-6 pm, Tuesday-Tuesday 7 am-6 pm, and Tuesday 7 am- noon. Fasting for Lab: For fasting labs, please: Do not eat for at least 8-10 hours before having your labs drawn, drink plenty of water, and make sure to continue your medications as prescribed (unless otherwise specified). Radiology is on the 2nd floor of the Medical Office Building. To Schedule an Appointment: Contact our schedulers at and select 1. If it has been over a year since your last appointment, please ask for an annual or yearly physical appointment. Receive Appointment Reminders on Your Cell Phone: Make sure we have your cell phone number, and text [facility] to [phone]. For Urgent Questions: On nights, weekends or holidays, call the head kiln operator at , and ask for the [employer] solar installation foreman. For emergencies, call 911. We value your feedback and you may receive a survey about your experience with our office. If you had a favorable experience, the only positive survey results that we will receive are if we are rated in the 9 or 10 range out of 10 points. NE PUBLISHER in this encounter Progress Notes * Carlotta Rudolph LPN - 11/22/2018 8:15 AM ONLINE PUBLISHER Records requested per pt, fax conformation received. NE PUBLISHER * Karissa Martin MD - 11/22/2018 8:15 AM ONLINE PUBLISHER Date of Service: 11/22/2018 Subjective: Heather Mancilla is a 52 y.o. female. History of Present Illness 52 yo here for vaginal bulge Started about a month ago. Started all of sudden and felt like a bulging sensation. Has looked down there and seen a mass. Prior to noticing this she has had right sided lower abdominal pain that would come and go. Started several years ago. The pain was lower in the abdomen, sharp in nature. Has been worsening since she had the bulging sensation. She has tried a heating pad and Advil for the pain and it has not helped. She tried Kegel's for the bulging sensation and has not noted any improvement. She has been wearing pads for urinary incontinence. Leaks urine daily. Has noticed pink tinge on her pad a few times over the past few years. Has not had a pelvic exam for over 8 years. Not sexually active. No recent imaging done. Does report diarrhea. Ob History: x 3, C/S x 1, SAB x 4, TAB x 1 Menstrual History Age at menarche 11 years old Duration of menses Length of Cycle Age at menopause 27 Pap: 8+ years ago normal. H/o abnormal in around 1991. Diagnosed with cervical cancer and had a hysterectomy done. STD: unsure of which ones, possibly chlamydia and trich Not sexually active Past Medical History: Diagnosis Date Asthma 1992 Back pain Cervical cancer (HCC): diagnosed in 1991. Reports she was told had precancerous cells and but was followed up during her for it to spread. Had a total hysterectomy after she healed from her section. Had pap smears for 1-2 years afterwards. Never saw an oncologist. 1992 Depression Fracture 1998 Hyperlipidemia Hypertension Palpitations Sleep apnea 2010 Past Surgical History: Procedure Laterality Date HX DILATION AND CURETTAGE 1986 WILLIE AND BSO 1992 SECTION 1992 CHOLECYSTECTOMY 2000 BELOW KNEE AMPUTATION 2006 left HERNIA REPAIR 2009 Histal hernia CARPAL TUNNEL RELEASE Bilateral HX BACK SURGERY ORTHOPEDIC SURGERY 1998, 1999, 2001, 2004, 2006, 2008 Family History Problem Relation Age of Onset Heart Attack Father Heart Failure Father Hypertension Father Stroke Father Cancer Father skin Hypertension Mother Cancer-Breast Mother Cancer-Breast Sister Cancer Brother Cancer-Breast Maternal Aunt Cancer-Breast Other 3 mat gr aunts Cancer-Breast Other mat gr gma Anesthetic Complication Neg Hx Arthritis Neg Hx Bleeding Disorders Neg Hx Cancer-Colon Neg Hx Cancer-Ovarian Neg Hx Cancer-Uterine Neg Hx Cervical Cancer Neg Hx Cleft Lip Neg Hx Cleft Palate Neg Hx Diabetes Neg Hx Heart Disease Neg Hx Migraines Neg Hx Rashes/Skin Problems Neg Hx Miscarriages Neg Hx Seizures Neg Hx Thyroid Disease Neg Hx Unknown to Patient Neg Hx VTE Neg Hx Social History Socioeconomic History Marital status: Occupational History Disabled Tobacco Use Smoking status: Former Smoker Types: Cigarettes Last attempt to quit: 11/14/1995 Years since quittin.0 Smokeless tobacco: Never Used Substance and Sexual Activity Alcohol use: Yes Comment: rarely Drug use: No Comment: 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 Review of Systems Constitutional: Positive for fatigue. Negative for fever and unexpected weight change. HENT: Negative for voice change. Respiratory: Positive for cough and shortness of breath. Cardiovascular: Positive for leg swelling. Negative for chest pain. Gastrointestinal: Positive for abdominal pain and diarrhea. Negative for blood in stool, constipation, nausea and vomiting. Genitourinary: Positive for enuresis, pelvic pain and vaginal discharge. Negative for difficulty urinating, dyspareunia, dysuria, frequency, genital sores, hematuria, menstrual problem, urgency, vaginal bleeding and vaginal pain. Musculoskeletal: Positive for arthralgias and back pain. Skin: Negative for rash. Neurological: Negative for light-headedness and headaches. Hematological: Negative for adenopathy. Does not bruise/bleed easily. Psychiatric/Behavioral: Negative for confusion. The patient is not nervous/ anxious. Objective: ALBUTEROL SULFATE (VENTOLIN IN) Inhale 2 Puffs by mouth as Needed. ALPRAZOLAM (XANAX PO) Take 1 Tab by mouth as Needed (up to three a day). amitriptyline (ELAVIL) 25 mg tablet Take one tablet by mouth at bedtime for two weeks. If tolerated, increase to two tablets by mouth at bedtime daily. aspirin EC 81 mg tablet Take 81 mg by mouth daily. Take with food. atorvastatin (LIPITOR) 40 mg tablet Take 40 mg by mouth daily. BENEFIBER (WHEAT DEXTRIN) PO Take 50 g/day by mouth daily. cholecalciferol (VITAMIN D-3) 1,000 units tablet Take 6,000 Units by mouth daily. fenofibrate (LIPOFEN) 50 mg capsule Take 164 mg by mouth daily. Take with food. furosemide (LASIX) 20 mg tablet Take 40 mg by mouth every morning. HYDROCODONE BIT/ACETAMINOPHEN (VICODIN PO) Take by mouth as Needed. magnesium METOPROLOL TARTRATE PO Take by mouth. MULTIVITAMIN WITH MINERALS (MULTIVITAMIN & MINERAL FORMULA PO) Take by mouth. mupirocin (BACTROBAN) 2 % topical ointment Apply topically to affected area three times daily. ONDANSETRON HCL (ZOFRAN PO) Take 4 mg by mouth as Needed. potassium chloride SR (K-DUR) 20 mEq tablet Take 20 mEq by mouth daily. Take with a meal and a full glass of water. SIMVASTATIN (ZOCOR PO) Take by mouth daily. Vitals: 11/22/18 0810 BP: 130/83 Pulse: 81 Weight: 93.7 kg (206 lb 9.6 oz) Height: 157.5 cm (62") Body mass index is 37.79 kg/m. Physical Exam Constitutional: She is oriented to person, place, and time. She appears well- developed and well-nourished. No distress. HENT: Head: Normocephalic and atraumatic. Eyes: Conjunctivae and EOM are normal. Right eye exhibits no discharge. Left eye exhibits no discharge. Cardiovascular: Normal rate, regular rhythm and normal heart sounds. Pulmonary/Chest: Effort normal and breath sounds normal. No stridor. No respiratory distress. She has no wheezes. Abdominal: Soft. She exhibits distension. She exhibits no mass. There is tenderness (right and left lower quadrants). There is no guarding. Genitourinary: There is no rash, tenderness, lesion or injury on the right labia. There is no rash, tenderness, lesion or injury on the left labia. There is tenderness in the vagina. No bleeding in the vagina. No foreign body in the vagina. No vaginal discharge found. Genitourinary Comments: Absent cervix. No visible or palpable mass. Mild cystocele, difficult to completely evaluate due to patient discomfort. No rectocele, mild vaginal vault prolapse Musculoskeletal: Left prosthetic leg below knee Neurological: She is alert and oriented to person, place, and time. Skin: Skin is warm and dry. No rash noted. She is not diaphoretic. Psychiatric: She has a normal mood and affect. Her behavior is normal. Vitals reviewed. Assessment and Plan: 1. Pelvic pain US PELVIS NON OB COMP 2. Vaginal pain 3. Cervical cancer screening CYTOLOGY PAP SMEAR SCREENING 4. Urinary incontinence, unspecified type AMB REFERRAL TO UROGYNECOLOGY 5. Establishing care with new doctor, encounter for AMB REFERRAL TO INTERNAL MEDICINE 6. Vaginal atrophy Pap smear collected due to possible cervical cancer history. Will obtain records to further evaluate. Possible prolapse, however, difficult to tell on exam due to discomfort. Pelvic pain, obtain ultrasound to r/o mass. If normal then consider pelvic PT and f/u with primary care to further evaluate pain. Refer to urogynecology for further evaluation for prolapse and treat urinary incontinence. Prior spotting likely vaginal atrophy, no treatment indicated at this time. If worsens can consider vaginal estrogen. Refer to internal medicine to establish care Karissa Martin MD NE PUBLISHER in this encounter Plan of Treatment Order Schedule Name Priority Associated Diagnoses Expected: 11/22/2018 (Approximate), Expires: 11/22/2019 CYTOLOGY PAP SMEAR SCREENING Routine Cervical cancer screening Order Schedule Name Priority Associated Diagnoses Ordered: 11/22/2018 AMB REFERRAL TO UROGYNECOLOGY Routine Urinary incontinence, unspecified type Ordered: 11/22/2018 AMB REFERRAL TO INTERNAL MEDICINE Routine Establishing care with new doctor, encounter for as of this encounter Results * US PELVIS NON OB COMP (11/27/2018 7:38 AM ONLINE PUBLISHER) Impressions Performed At Prior hysterectomy with unremarkable [...] Interface, Radiant Results - 11/27/2018 5:58 PM ONLINE PUBLISHER Ultrasound of the pelvis Clinical Indication: Female, [...] this encounter Visit Diagnoses Diagnosis Pelvic pain - Primary Vaginal pain Unspecified symptom associated with female genital organs Cervical cancer screening Screening for malignant neoplasm of the cervix Urinary incontinence, unspecified type Establishing care with new doctor, encounter for Other reasons for seeking consultation Vaginal atrophy Postmenopausal atrophic vaginitis in this encounter
--- OUTSIDE RECORDS SUMMARY | 2018-12-01 15:35 | XMS REPORT | Encounter Summary ---
Author Author [facility] Organization [facility] Address Unknown Phone Unavailable Care Team Providers Care Vp [employer] Solutions Name Role Phone Desmond Martinez MD Unavailable Anibal Kuhn MD Unavailable Chayito Evans MD Unavailable Graham Pichardo MD Unavailable Kaity Bronson RD Unavailable No Pcp, Na PCP Unavailable Reason for Visit * Reason Comments General Question Encounter Details Care Team Description Date Type Department Karissa Sharif MD [address] [facility] [address] [place] [address] General Question 11/28/2018 Telephone [facility] - [facility]YN [facility] Level 5B [address] [place] [address] Social History Date Tobacco Use [...] encounter Miscellaneous Notes * Telephone Encounter - Carlotta Rudolph LPN - 11/28/2018 1:24 PM CAR SUPPLIER Pt calling to see if she should still go to the appointment with urogyn since her US was normal, advised pt she should keep her scheduled appointment. SUPPLIER in this encounter Plan of Treatment Not on fileas of this encounter Visit Diagnoses Not on filein this encounter
--- OUTSIDE RECORDS SUMMARY | 2018-12-01 15:36 | XMS REPORT | Encounter Summary ---
Author Author [facility] Organization [facility] Address Unknown Phone Unavailable Care Team Providers Care Sheet Rock Finisher Name Role Phone Eugenia Cuadra SUPERVISOR METAL FURNITURE FABRICATION PCP Encounter Details Date Type Department Care Team Description 10/16/2018 Telephone [facility] Marlon Johnson MD [facility] [address] [facility] [address] [facility] [address] [place] [phone] Social History Tobacco Use Types Packs/Day Years Used Date Former Smoker Cigarettes 2 9 Quit: 1991 Smokeless Tobacco: Never Used Alcohol Use Drinks/Week oz/Week Comments No Sex Assigned at Date Recorded Not on file as of this encounter Miscellaneous Notes * Telephone Encounter - Elvia Sanders MA - 10/16/2018 8:45 AM PULMONARY NURSE PRACTITIONER Per Dr. Johnson - Called patient with results. Patient verbalized understanding and all questions were answered. Will contact patient to schedule a Methacholine Challenge Test at next visit with a follow up visit with Dr. Johnson. * Telephone Encounter - Elvia Sanders MA - 10/16/2018 8:45 AM PULMONARY NURSE PRACTITIONER ----- Message from Marlon Johnson MD sent at 10/13/2018 3:31 PM PULMONARY NURSE PRACTITIONER ----- Regarding: results Please call this patient with the results of her scans. The CT of the sinuses was normal - chronic sinusitis is not a cause of her symptoms. The high resolution CT of the chest looked a lot better than her prior scan. There was no evidence of interstitial inflammatory disease. So, a lung biopsy will not be required. It did show some air trapping on exhalation that would suggest asthma, which we are trying to treat. How is the montelukast pill working? Thanks, Marlon ----- Message ----- From: Interface, Rad Results In Sent: 10/11/2018 2:59 PM To: Marlon Johnson MD in this encounter Plan of Treatment Not on fileas of this encounter Visit Diagnoses Not on filein this encounter
--- OUTSIDE RECORDS SUMMARY | 2018-12-01 15:36 | XMS REPORT | Encounter Summary ---
Author Author [facility] Organization [facility] Address Unknown Phone Unavailable Care Team Providers Care Data Entry Coordinator Name Role Phone Eugenia Cuadra COURTNEY PCP Reason for Referral * MRI/CAT/PET Scan (Routine) Status Reason Specialty Diagnoses / Referred By Referred To Procedures Contact Contact Closed Radiology Diagnoses Marlon Johnson, [address] [facility] [address] [facility] drainage [address] [facility], [address] [place], [place] rocedures [address] [address] Sinuses [place], [place] Phone: contrast [phone] Phone: Reason for Visit * MRI/CAT/PET Scan (Routine) Status Reason Specialty Diagnoses / Referred By Referred To Procedures Contact Contact Closed Radiology Diagnoses Marlon Johnson, [address] [facility] [address] [place] [address] drainage [address] [facility], [address] [place], [place] rocedures [address] [address] Sinuses [place], [place] Phone: contrast [phone] Phone: Encounter Details Date Type Department Care Team Description 10/11/2018 [facility] Marlon Johnson MD Cough; [facility] [address] [place] [address] Nasal drainage [address] [facility] [address] [place] [phone] Social History Tobacco Use Types Packs/Day Years Used Date Former Smoker Cigarettes 2 9 Quit: 1991 Smokeless Tobacco: Never Used Alcohol Use Drinks/Week oz/Week Comments No Sex Assigned at Date Recorded Not on file as of this encounter Plan of Treatment Not on fileas of this encounter Procedures Procedure Name Priority Date/Time Associated Diagnosis Comments CT SINUSES WO CONTRAST Routine 10/11/2018 Cough Results for this 10:48 AM SUPPLY CHAIN PROJECT MANAGER Nasal drainage procedure are in the results section. in this encounter Results * CT Sinuses wo contrast (10/11/2018 10:48 AM) Impressions Performed At No evidence of inflammatory sinonasal disease. MEGHANA ATTESTATION STATEMENT: The Staff Radiologist has personally reviewed the images and dictated, reviewed, or edited the final report. READING SITE: [facility] Narrative Performed At Patient: CURLY MUNGUIA Sex#:F # [id number] Janneth#:[id number] Location:[facility] CT Procedure Requested:[id number] CT SINUSES WO CONTRAST Reason for Exam:Cough Exam Ordered: Exam Date/Time: Begin exam date/time: CT SINUSES WO CONTRAST DATE: 10/11/2018 10:48 AM INDICATION:Chronic cough. Nasal drainage. Intermittent sinus drip and fullness. COMPARISON: None. TECHNIQUE: CT images of the paranasal sinuses were obtained without intravenous contrast. Coronal and sagittal reformatted images were performed at a separate workstation and reviewed. One or more of the following dose reduction techniques were utilized: Automated exposure control (AEC), Adjustment of mA and/or kV according to patient size, Use of iterative reconstruction technique such as ASiR, CT scan done according to ALARA and image gently/image wisely FINDINGS: The maxillary, ethmoid, sphenoid, and frontal sinuses are clear. No air-fluid levels. No significant mucoperiosteal thickening.The osteomeatal units are patent. Mild leftward deviation of nasal septum mortise anteriorly.. The visualized osseous structures are otherwise normal. The visualized orbits and globes are normal. The visualized brain parenchyma is normal in attenuation. Visualized mastoid air cells are clear. The middle ear cavities also appear clear. Mild deviation of the nasal bones towards the right might relate to old injury. Procedure Note Interface, Rad Results In - 10/11/2018 12:44 PM SUPPLY CHAIN PROJECT MANAGER Patient: HEATHER MUNGUIA Sex#: F # [id number] Janneth#: [id number] Location: [facility] CT Procedure Requested: [id number] CT SINUSES WO CONTRAST Reason for Exam: Cough Exam Ordered: 10/11/2018 1013 Exam Date/Time: 10/11/2018 1048 Begin exam date/time: 10/11/[address] SINUSES WO CONTRAST DATE: 10/11/2018 10:48 AM INDICATION: Chronic cough. Nasal drainage. Intermittent sinus drip and fullness. COMPARISON: None. TECHNIQUE: CT images of the paranasal sinuses were obtained without intravenous contrast. Coronal and sagittal reformatted images were performed at a separate workstation and reviewed. One or more of the following dose reduction techniques were utilized: Automated exposure control (AEC), Adjustment of mA and/or kV according to patient size, Use of iterative reconstruction technique such as ASiR, CT scan done according to ALARA and image gently/image wisely FINDINGS: The maxillary, ethmoid, sphenoid, and frontal sinuses are clear. No air-fluid levels. No significant mucoperiosteal thickening. The osteomeatal units are patent. Mild leftward deviation of nasal septum mortise anteriorly.. The visualized osseous structures are otherwise normal. The visualized orbits and globes are normal. The visualized brain parenchyma is normal in attenuation. Visualized mastoid air cells are clear. The middle ear cavities also appear clear. Mild deviation of the nasal bones towards the right might relate to old injury. IMPRESSION No evidence of inflammatory sinonasal disease. ATTESTATION STATEMENT: The Staff Radiologist has personally reviewed the images and dictated, reviewed, or edited the final report. READING SITE: [facility] Organization Address City/State/Zipcode Phone Number [place] in this encounter Visit Diagnoses Diagnosis Cough Nasal drainage
--- OUTSIDE RECORDS SUMMARY | 2018-12-01 15:36 | XMS REPORT | Encounter Summary ---
Author Author [facility] Organization [facility] Address Unknown Phone Unavailable Care Team Providers Care Chainstitch Binder Name Role Phone PCP Unavailable Reason for Referral * MRI/CAT/PET Scan (Routine) Status Reason Specialty Diagnoses / Referred By Referred To Procedures Contact Contact Closed Radiology Diagnoses Marlon Johnson, Mpi Ct Hemoptysis [address] [place] [address] [place] [address], [facility] [address] infiltrates [place], [place] P [address] [address] [address] [place], [place] Phone: [place] [phone] contrast and Phone: high resolution [phone] * Pulmonology (Routine) Status Reason Specialty Diagnoses / Referred By Referred To Procedures Contact Contact Authorized Radiology Diagnoses Marlon Johnson, Slh Mw Pulm Pft Moderate Xray persistent [address] asthma without [place], [place] complication [address] [address] [address] [place], [place] Phone: [place] [phone] Methacholine Phone: Challenge [phone] * MRI/CAT/PET Scan (Routine) Status Reason Specialty Diagnoses / Referred By Referred To Procedures Contact Contact Closed Radiology Diagnoses Marlon Johnson, Mpi Ct Cough [address] [place] [address] Nasal drainage 4321 [facility] [address] [place], [place] rocedures [address] Sinuses wo [place], [place] Phone: contrast [phone] Phone: Reason for Visit * Reason Comments Follow-up Dyspnea with Cough/Bronch Results Encounter Details Date Type Department Care Team Description 10/03/2018 Office Visit [facility] Marlon Johnson MD Moderate persistent [facility] 4321 [facility] asthma without 4321 [facility] [address] complication (Primary [address] [place], [place] Dx); [place] [phone] Hemoptysis; [phone] Pulmonary infiltrates; Restless leg syndrome; Obstructive sleep apnea; Cough; Nasal drainage; Need for vaccination Social History Tobacco Use Types Packs/Day Years Used Date Former Smoker Cigarettes 2 9 Quit: 1991 Smokeless Tobacco: Never Used Alcohol Use Drinks/Week oz/Week Comments No Sex Assigned at Date Recorded Not on file as of this encounter Last Filed Vital Signs Vital Sign Reading Time Taken Blood Pressure 135/84 10/03/2018 3:20 PM INSEAMER Pulse 98 10/03/2018 3:20 PM INSEAMER Temperature - - Respiratory Rate 16 10/03/2018 3:20 PM INSEAMER Oxygen Saturation 98% 10/03/2018 3:20 PM INSEAMER Inhaled Oxygen - - Concentration Weight 90.7 kg (200 lb) 10/03/2018 3:20 PM INSEAMER Height 157.5 cm (5' 2") 10/03/2018 3:20 PM INSEAMER Body Mass Index 36.58 10/03/2018 3:20 PM INSEAMER in this encounter Progress Notes * Marlon Johnson MD - 10/03/2018 3:20 PM INSEAMER Formatting of this note may be different from the original. Sleep Medicine Follow-up Clinic Visit NAME: Heather Munguia : 1965 Primary Care Physician: Khalif Chief Complaint: Follow-up (Dyspnea with Cough/Bronch Results) SUBJECTIVE Heather was seen today in follow-up. She is a 52-year-old female diagnosed with asthma at [place] in the past. She reports a 2-year history of persistent cough that is primarily nonproductive, but occasionally produces yellow sputum mixed with blood. She reports occasional sweats at night. She finds some coughing fits whenever she has CPAP on to be troublesome. She denies fever. She has been taking Symbicort as prescribed and she thinks it helps a little. She has received subjective benefit from Ventolin in the past but she does not think that Pro Air helps. Her son has asthma. She has a prior history of illicit drug use, but I am not sure what she used to use. She has not used for years. She quit smoking in 1991 but only has 18-year pack history. She does have some exertional dyspnea but her primary complaint is persistent cough. She reports occasional nasal drip and an occasional feeling of sinus fullness. She is to have bothersome acid reflux but this resolved after a Johnson fundoplication. She denies allergic rhinitis symptoms. After last visit the patient underwent a CT angiogram of the chest and there is no evidence of pulmonary embolism. There is a mosaic attenuation to the lungs that to my eye looks more like patchy groundglass opacities, possibly consistent with interstitial lung disease. She has no adenopathy. The patient has had an extensive laboratory workup showing negative LIAT, negative AnCa, negative hypersensitivity pneumonitis panel, and negative rheumatologic studies. The patient underwent a bronchoscopy showing inflamed mucosa but no purulence and no blood. Cultures are entirely negative. Cell count on the lavage fluid shows minimal inflammation with only 97 white blood cells, but lymphocyte predominant. Cytology was normal. She has had an echocardiogram in the past that shows a normal ejection fraction , with mild RV dilatation and mild pulmonary hypertension. She does have obstructive sleep apnea and uses CPAP. She did not bring a compliance card for review. She states that she wears it nightly. The addition of heated tubing at last visit has improved her comfort. We requested records from [facility] in [place] but have not received anything yet. Review of Systems: Constitutional, positive weight gain, no fever. Cardiovascular, no chest pain, no edema. 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 VITALS Vitals Weight: 90.7 kg (200 lb) Height: 157.5 cm (5' 2") BSA (Calculated - sq m): 1.912 sq meters BMI (Calculated): 36.6 BP: 135/84 BP Location: Left arm Patient Position: Sitting Cuff size: Large Pulse: 98 Resp: 16 SpO2: 98 % O2 Saturation: Able to maintain O2 Saturation>92% on room air Fi02: 21 % O2 Delivery Device: Room air BIPAP/CPAP: Yes DME Company: ([employer]) MEDICATIONS Current Outpatient Prescriptions Medication Sig Dispense Refill albuterol (PROVENTIL) 5 mg/mL nebulizer solution Inhale 2 puffs as needed. ALPRAZolam (XANAX) 0.5 MG tablet take 1 tablet (0.5MG) by oral route 3 times every day 1 0 aspirin 81 MG EC tablet TAKE ONE TABLET BY MOUTH ONCE DAILY 90 tablet 3 atorvastatin (LIPITOR) 40 MG tablet TAKE ONE TABLET BY MOUTH ONCE DAILY 90 tablet 3 budesonide-formoterol (SYMBICORT) 160-4.5 mcg/actuation inhaler Inhale 2 puffs 2 (two) times a day. 10.2 g 5 cholecalciferol, vitamin D3, 1,000 unit tablet Take 5,000 Units by mouth daily. fenofibrate 160 mg Tab Take 160 mg by mouth daily. 90 tablet 3 furosemide (LASIX) 40 MG tablet Take 1 tablet in the morning and 0.5 tablet at noon 135 tablet 1 KLOR-CON M20 20 mEq tablet TAKE ONE TABLET BY MOUTH ONCE DAILY 30 tablet 11 metoprolol succinate (TOPROL-XL) 25 MG 24 hr tablet Take 25 mg by mouth daily. 1/2 Tab Twice Daily mupirocin (BACTROBAN) 2 % ointment Apply 2 g topically as needed. therapeutic multivitamin (THERAGRAN) tablet Take 1 tablet by mouth daily. montelukast (SINGULAIR) 10 mg tablet Take 1 tablet (10 mg total) by mouth nightly. 30 tablet 5 VENTOLIN HFA 90 mcg/actuation HFA inhaler Inhale 2 puffs every 4 (four) hours as needed for wheezing. 18 g 4 No current facility-administered medications for this visit. EXAM The vital signs were reviewed. General: No apparent distress. Obese female, occasional cough HEENT: Oropharynx clear. No thrush. Normal sclera, nonicteric. PERRL. Tympanic membranes obscured by cerumen. Nasal passages are inflamed. No sinus tenderness Neck: Supple. No JVD. Thyroid normal. No bruits. CV: Regular rate and rhythm. Lungs: Clear. Good air movement. Respiratory effort is unlabored. Abdomen: Soft, NTTP, NABS. No organomegaly. Extremities: No peripheral edema. No cyanosis or clubbing. Left lower extremity amputation Psych: Mood is good, affect is normal. AAO x 3. LABS Admission on 08/30/2018, Discharged on 08/30/2018 Component Date Value Ref Range Status Aldolase 08/30/2018 3.6 3.3 - 10.3 U/L Final Comment: Performed at: [address] [id number] Poker Room Manager: Wale Rendon MD, Phone: [phone] Angiotensin Converting Enzyme 08/30/2018 48 14 - 82 U/L Final Comment: Performed at: [address] [id number] Poker Room Manager: Wale Rendon MD, Phone: [phone] Anti Cyclic Citrullinated Peptide 08/30/2018 1 0 - 30 units Final LIAT Qualitative 08/30/2018 Negative Negative Final Creatine Kinase 08/30/2018 59 IU/L Final Comment: White Female: 30 - 160 IU/L Black Female: 30 - 430 IU/L White Male: 40 - 425 IU/L Black Male: 50 - 850 IU/L Sed Rate 08/30/2018 25* 0 - 17 mm/h Final A.fumigatus #1 Ab 08/30/2018 Negative Negative Final Micropolyspora faeni Ab 08/30/2018 Negative Negative Final Thermoa. vulgaris #1 Ab 08/30/2018 Negative Negative Final A. pullulans Ab 08/30/2018 Negative Negative Final Thermoact. saccharii Ab 08/30/2018 Negative Negative Final [place] Serum Ab 08/30/2018 Negative Negative Final Comment: Performed at: [address] [id number] Poker Room Manager: Wale Rendon MD, Phone: [phone] CHACORTA-1 Antibody 08/30/2018 Negative Negative Final Rheumatoid Factor 08/30/2018 <9 0 - 11 IU/mL Final SCL-70 08/30/2018 Negative Negative Final Gram Stain 08/30/2018 Final Value:Less than 10 WBC per low power field Less than 10 epithelial cells per low power field Gram Stain 08/30/2018 No organisms seen Final Culture Result 08/30/2018 No growth at 3 days Final AFB Stain 08/30/2018 No Acid Fast Bacilli seen on fluorescent stain. Final Culture result Mycobacteriology 08/30/2018 No Acid fast bacilli isolated at 4 weeks Preliminary Fungal Stain 08/30/2018 No fungal elements seen Final Fungal Stain 08/30/2018 Method used: Silver Stain Final Fungus Culture 08/30/2018 No Fungus isolated at 3 weeks Final CMV PCR Qualitative 08/30/2018 Not Detected Not Detected Final Comment: This test was developed and its performance characteristics determined by [facility]. It has not been cleared or approved by the US Food and Drug Administration (FDA). This test is used for clinical purposes. It should not be regarded as investigational or for research. The laboratory is regulated under CLIA as qualified to perform high-complexity testing and accredited by the [employer] (CAP). Source 08/30/2018 Bronch- Right Upper Lobe Final HSV-1 08/30/2018 Not Detected Not Detected Final Comment: This test was developed and its performance characteristics determined by [facility]. It has not been cleared or approved by the US Food and Drug Administration (FDA). This test is used for clinical purposes. It should not be regarded as investigational or for research. The laboratory is regulated under CLIA as qualified to perform high-complexity testing and accredited by the [employer] (CAP). HSV-2 08/30/2018 Not Detected Not Detected Final Source 08/30/2018 Bronch- Right Upper Lobe Final Adenovirus 08/30/2018 Not Detected Not Detected Final Coronavirus 08/30/2018 Not Detected Not Detected Final Human Metapneumovirus (hMPV) 08/30/2018 Not Detected Not Detected Final Human Rhinovirus Enterovirus 08/30/2018 Not Detected Not Detected Final Influenza A 08/30/2018 Not Detected Not Detected Final Influenza B 08/30/2018 Not Detected Not Detected Preliminary Parainfluenza Virus 08/30/2018 Not Detected Not Detected Final Respiratory Syncytial Virus Pl 08/30/2018 Not Detected Not Detected Final Bordetella pertussis 08/30/2018 Not Detected Not Detected Final Chlamydophila pneumoniae 08/30/2018 Not Detected Not Detected Final Mycoplasma pneumoniae 08/30/2018 Not Detected Not Detected Final Source 08/30/2018 BRONCH Final Pneumocystis PCR 08/30/2018 Not Detected Not Detected Final Comment: This test was developed and its performance characteristics determined by [facility] [facility]. It has not been cleared or approved by the US Food and Drug Administration. This test is used for clinical purposes. It should not be regarded as investigational or for research. The laboratory is regulated under CLIA as qualified to perform high-complexity testing and accredited by the [employer] ( CAP). Pneumocystis SRC 08/30/2018 Bronch- Right Upper Lobe Final Source 08/30/2018 BRONCH Final Bronch Lavage WBC 08/30/2018 97 /uL Final Comment: This test should be integrated into the clinical context for interpretation. Bronch Lavage RBC 08/30/2018 1000 /uL Final Bronch Lavage Neutrophils 08/30/2018 5* 0 - 3 % Final Bronch Lavage Lymphocytes 08/30/2018 73* 10 - 15 % Final Bronch Lavage Macrophages 08/30/2018 21* 85 - 100 % Final Bronch Lavage Eosinophils 08/30/2018 1 0 - 1 % Final MPO Antibody 08/30/2018 <3 0 - 20 CU Final PR3 Antibody 08/30/2018 <2 0 - 20 CU Final Lab on 08/18/2018 Component Date Value Ref Range Status Aspartate Aminotransferase 08/18/2018 23 15 - 46 IU/L Final Alanine Aminotransferase 08/18/2018 29 0 - 34 IU/L Final ALT reference range changed on 05-23-2018 Cholesterol 08/18/2018 216* 100 - 200 mg/dL Final HDL Cholesterol 08/18/2018 50 40 - 110 mg/dL Final Non-HDL Cholesterol 08/18/2018 166* 0 - 130 mg/dL Final Triglycerides 08/18/2018 191* 0 - 150 mg/dL Final LDL Cholesterol 08/18/2018 128* 0 - 99 mg/dL Final HPP 08/18/2018 8 H Final Cholesterol/HDL Ratio 08/18/2018 4.3 0.0 - 4.5 Final RESULTS / DATA ASSESSMENT Encounter Diagnoses Name SNOMED CT(R) Primary? Moderate persistent asthma without complication UNCOMPLICATED MODERATE PERSISTENT ASTHMA Yes Hemoptysis HEMOPTYSIS Pulmonary infiltrates RADIOLOGIC INFILTRATE OF LUNG Restless leg syndrome RESTLESS LEGS Obstructive sleep apnea OBSTRUCTIVE SLEEP APNEA SYNDROME Cough COUGH Nasal drainage NASAL DISCHARGE Need for vaccination REQUIRES VACCINATION PLAN Orders Placed This Encounter [facility]. Supply/Equip (Specify) Please provide the patient with heated tubing CECILIO=[address] Sinuses wo contrast Standing Status: Future Standing Expiration Date: 10/04/2019 CT Chest wo contrast and high resolution Standing Status: Future Standing Expiration Date: 10/04/2019 Pneumococcal conjugate vaccine 13-valent greater than 6yo IM Order Specific Question: Private or Public Funded Immunization? Answer: Private Immunoglobulin E Standing Status: Future Standing Expiration Date: 10/04/2019 Methacholine Challenge On day of next visit Standing Status: Future Standing Expiration Date: 12/03/2018 VENTOLIN HFA 90 mcg/actuation HFA inhaler Sig: Inhale 2 puffs every 4 (four) hours as needed for wheezing. Dispense: 18 g Refill: 4 budesonide-formoterol (SYMBICORT) 160-4.5 mcg/actuation inhaler Sig: Inhale 2 puffs 2 (two) times a day. Dispense: 10.2 g Refill: 5 Order Specific Question: Lot Number? Answer: [id number] Order Specific Question: Expiration Date? Answer: 07/15/2019 Order Specific Question: Quantity Answer: 2 montelukast (SINGULAIR) 10 mg tablet Sig: Take 1 tablet (10 mg total) by mouth nightly. Dispense: 30 tablet Refill: 5 CT scan of the sinuses to make sure that chronic sinusitis and postnasal drip are not contributing to her symptoms. CT scan of the chest with high resolution to further evaluate her pulmonary infiltrates and possible interstitial lung disease. Continue Symbicort 2 puffs twice daily as previously prescribed. Add Singulair 10 mg at bedtime. Proper use was discussed. Add Ventolin HFA for rescue. Methacholine challenge test at next visit to exclude asthma. Check IgE level. A Prevnar 13 pneumococcal vaccine was administered today. If the above studies show persistence of the groundglass opacities, and methacholine challenge test is negative, the patient may ultimately need a lung biopsy to make a diagnosis. Return to clinic in 2 months, or sooner if new problems arise. Thank you for allowing me to participate in this patient's care. Electronically signed by Marlon Johnson MD 10/03/2018 4:45 PM in this encounter Plan of Treatment Name Priority Associated Diagnoses Order Schedule Methacholine Challenge Routine Moderate persistent 1 Occurrences starting asthma without 10/03/2018 until complication 12/03/2018 as of this encounter Results * CT Chest wo contrast and high resolution (10/11/2018 10:48 AM) Impressions Performed At 1. Subtle scattered mosaic attenuation and air trapping consistent with [place] mild small airway disease. No pulmonary fibrosis. 2. No pulmonary mass or consolidation. ATTESTATION STATEMENT: The Staff Radiologist has personally reviewed the images and dictated, reviewed, or edited the final report. READING SITE: [facility] Narrative Performed At Patient: CURLY MUNGUIA Sex#:F # [id number] Janneth#:[id number] Location:[facility] Procedure Requested:[id number] CT CHEST WO CONTRAST AND HIGH RESOLUTION Reason for Exam:Hemoptysis Exam Ordered:10/11/20181014 Exam Date/Time:10/11/20181048 Begin exam date/time:10/11/20181025 CT CHEST WO CONTRAST AND HIGH RESOLUTION INDICATION:Hemoptysis Pulmonary infiltrates Comparison: 08/18/2018. TECHNIQUE: Unenhanced axial CT sections were obtained through the lungs and upper abdomen. Coronal MIP images and coronal and sagittal multiplanar reconstructions were also obtained. Unenhanced thin section axial images were obtained through the lungs. Inspiratory thin section and, expiratory and prone high resolution images were obtained. FINDINGS: Lungs and Airways: No pulmonary nodule.No pulmonary mass or consolidation No endoluminal lesion. Inspiratory thin section images demonstrate subtle scattered mosaic attenuation. No bronchiectasis. No pulmonary micronodules, cystic changes or pulmonary fibrosis. Expiratory high resolution images demonstrate mild basilar predominant air trapping. Prone high resolution images demonstrate no evidence of basilar reticulation, groundglass opacity or fibrosis. Pleura: The pleural spaces are normal. Heart and Mediastinum: The visualized portions of the thyroid gland are normal in size and attenuation. No axillary or supraclavicular lymphadenopathy. No mediastinal, hilar or retrocrural lymphadenopathy. The heart and pericardium are within normal limits. The great vessels of the thorax are normal. Abdomen: Limited images through the upper abdomen show no abnormality of the visualized abdominal organs. Bones and Soft Tissues: No acute osseous abnormality. Chronic lower thoracic Schmorl's node deformity. Procedure Note Interface, Rad Results In - 10/11/2018 2:59 PM INSEAMER Patient: HEATHER MUNGUIA Sex#: F # [id number] Janneth#: [id number] Location: [facility] CT Procedure Requested: [id number] CT CHEST WO CONTRAST AND HIGH RESOLUTION Reason for Exam: Hemoptysis Exam Ordered: 10/11/2018 1014 Exam Date/Time: 10/11/2018 1048 Begin exam date/time: 10/11/[address] CHEST WO CONTRAST AND HIGH RESOLUTION INDICATION: Hemoptysis Pulmonary infiltrates Comparison: 08/18/2018. TECHNIQUE: Unenhanced axial CT sections were obtained through the lungs and upper abdomen. Coronal MIP images and coronal and sagittal multiplanar reconstructions were also obtained. Unenhanced thin section axial images were obtained through the lungs. Inspiratory thin section and, expiratory and prone high resolution images were obtained. FINDINGS: Lungs and Airways: No pulmonary nodule. No pulmonary mass or consolidation No endoluminal lesion. Inspiratory thin section images demonstrate subtle scattered mosaic attenuation. No bronchiectasis. No pulmonary micronodules, cystic changes or pulmonary fibrosis. Expiratory high resolution images demonstrate mild basilar predominant air trapping. Prone high resolution images demonstrate no evidence of basilar reticulation, groundglass opacity or fibrosis. Pleura: The pleural spaces are normal. Heart and Mediastinum: The visualized portions of the thyroid gland are normal in size and attenuation. No axillary or supraclavicular lymphadenopathy. No mediastinal, hilar or retrocrural lymphadenopathy. The heart and pericardium are within normal limits. The great vessels of the thorax are normal. Abdomen: Limited images through the upper abdomen show no abnormality of the visualized abdominal organs. Bones and Soft Tissues: No acute osseous abnormality. Chronic lower thoracic Schmorl's node deformity. IMPRESSION 1. Subtle scattered mosaic attenuation and air trapping consistent with mild small airway disease. No pulmonary fibrosis. 2. No pulmonary mass or consolidation. ATTESTATION STATEMENT: The Staff Radiologist has personally reviewed the images and dictated, reviewed, or edited the final report. READING SITE: [facility] Organization Address City/State/Zipcode Phone Number [place] * CT Sinuses wo contrast (10/11/2018 10:48 AM) Impressions Performed At No evidence of inflammatory sinonasal disease. [place] ATTESTATION STATEMENT: The Staff Radiologist has personally reviewed the images and dictated, reviewed, or edited the final report. READING SITE: [facility] Narrative Performed At Patient: CURLY MUNGUIA Sex#:F # [id number] Janneth#:[id number] Location:[facility] CT Procedure Requested:[id number] CT SINUSES WO CONTRAST Reason for Exam:Cough [...] Rad Results In - 10/11/2018 12:44 PM INSEAMER Patient: HEATHER MUNGUIA Sex#: [place] # 1965 Janneth#: [id number] Location: [facility] CT Procedure Requested: [id number] CT SINUSES WO CONTRAST Reason for Exam: [...] or edited the final report. READING SITE: [facility] Performing Organization Address City/[facility]/Zipcode Phone Number [place] * Immunoglobulin E (10/03/2018 4:57 PM) IgE Serum 27 0 - 100 IU/mL R Comment: Performed at: - [facility] [id number] Poker Room Manager: Etelvina Cardenas MD, Phone:[phone] Specimen Blood Performing Organization Address City/[facility]/Zipcode Phone Number [phone] [place] [address] in this encounter Visit Diagnoses Diagnosis Moderate persistent asthma without complication - Primary Hemoptysis Pulmonary infiltrates Pulmonary eosinophilia Restless leg syndrome Restless legs syndrome (RLS) Obstructive sleep apnea Obstructive sleep apnea (adult) (pediatric) Cough Nasal drainage Need for vaccination Need for prophylactic vaccination and inoculation against unspecified single disease
--- OUTSIDE RECORDS SUMMARY | 2018-12-01 15:36 | XMS REPORT | Encounter Summary ---
Author Author [facility] Organization [facility] Address Unknown Phone Unavailable Care Team Providers Care Corking Machine Operator Name Role Phone KhalifEugenia zapata COURTNEY PCP Encounter Details Date Type Department Care Team Description 10/03/2018 Procedure [facility], [address] [address] Social History Tobacco Use Types Packs/Day Years Used Date Former Smoker Cigarettes 2 9 Quit: 1991 Smokeless Tobacco: Never Used Alcohol Use Drinks/Week oz/Week Comments No Sex Assigned at Date Recorded Not on file as of this encounter Plan of Treatment Not on fileas of this encounter Visit Diagnoses Not on filein this encounter
--- OUTSIDE RECORDS SUMMARY | 2018-12-01 15:36 | XMS REPORT | Encounter Summary ---
Author Author [facility] Organization [facility] Address Unknown Phone Unavailable Care Team Providers Care Extractor Operator Helper Name Role Phone PCP Unavailable Encounter Details Date Type Department Care Team Description 10/03/2018 Lab [facility] Marlon Johnson MD Moderate persistent [address] [facility] asthma without [address] complication [place], [place] [address] [place] [address] [phone] Social History Tobacco Use Types Packs/Day Years Used Date Former Smoker Cigarettes 2 9 Quit: 1991 Smokeless Tobacco: Never Used Alcohol Use Drinks/Week oz/Week Comments No Sex Assigned at Date Recorded Not on file as of this encounter Plan of Treatment Not on fileas of this encounter Procedures Procedure Name Priority Date/Time Associated Diagnosis Comments IMMUNOGLOBULIN E Routine 10/03/2018 Moderate persistent Results for this 4:57 PM WELL REACTIVATOR OPERATOR asthma without procedure are in the complication results section. in this encounter Results * Immunoglobulin E (10/03/2018 4:57 PM) IgE Serum 27 0 - 100 IU/mL R Comment: Performed at: - [id number] Esl Teacher: Etelvina Cardenas MD, Phone:[phone] Specimen Blood Performing Organization Address City/State/Zipcode Phone Number [phone] [place] [address] in this encounter Visit Diagnoses Diagnosis Moderate persistent asthma without complication
--- OUTSIDE RECORDS SUMMARY | 2018-12-01 15:36 | XMS REPORT | Encounter Summary ---
Author Author [facility] Organization [facility] Address Unknown Phone Unavailable Care Team Providers Care Website Programmer Name Role Phone Eugenia Cuadra COURTNEY PCP Reason for Referral * MRI/CAT/PET Scan (Routine) Status Reason Specialty Diagnoses / Referred By Referred To Procedures Contact Contact Closed Radiology Diagnoses Marlon Johnson, [address] Hemoptysis [address] [place] [address] [place] [address], [address] [place], [place] [address] [address] [place], [place] Phone: [place] [phone] contrast and Phone: high resolution [phone] Reason for Visit * MRI/CAT/PET Scan (Routine) Status Reason Specialty Diagnoses / Referred By Referred To Procedures Contact Contact Closed Radiology Diagnoses Marlon Johnson, [address] Hemoptysis [address] [place] [address] Pulmonary [facility], [address] [place], [place] [address] [address] [place], [place] Phone: [place] [phone] contrast and Phone: high resolution [phone] Encounter Details Date Type Department Care Team Description 10/11/2018 Imaging [facility] Marlon Johnson MD Hemoptysis ; [facility], [facility] [address] [place] [address] Pulmonary infiltrates [address] [place] [address], [facility] [address] [place] [phone] Social History Tobacco Use Types Packs/Day Years Used Date Former Smoker Cigarettes 2 9 Quit: 1991 Smokeless Tobacco: Never Used Alcohol Use Drinks/Week oz/Week Comments No Sex Assigned at Date Recorded Not on file as of this encounter Plan of Treatment Not on fileas of this encounter Procedures Procedure Name Priority Date/Time Associated Diagnosis Comments CT CHEST WO CONTRAST AND Routine 10/11/2018 Hemoptysis Results for this HIGH RESOLUTION 10:48 AM SPLICING SUPERVISOR Pulmonary infiltrates procedure are in the results section. in this encounter Results * CT Chest wo contrast and high resolution (10/11/2018 10:48 AM) Impressions Performed At 1. Subtle scattered mosaic attenuation and air trapping consistent with MEGHANA mild small airway disease. No pulmonary fibrosis. 2. No pulmonary mass or consolidation. ATTESTATION STATEMENT: The Staff Radiologist has personally reviewed the images and dictated, reviewed, or edited the final report. READING SITE: [facility] Narrative Performed At Patient: CURLY MUNGUIA Sex#:F # [id number] Janneth#:[id number] Location:[facility] CT Procedure Requested:[id number] CT CHEST WO CONTRAST AND HIGH RESOLUTION Reason for Exam:Hemoptysis Exam Ordered: Exam Date/Time: Begin exam date/time: CT CHEST WO CONTRAST AND HIGH RESOLUTION [...] Rad Results In - 10/11/2018 2:59 PM SPLICING SUPERVISOR Patient: HEATHER MUNGUIA Sex#: F # [id number] Janneth#: [id number] Location: [facility] CT Procedure Requested: [id number] CT CHEST WO CONTRAST AND HIGH RESOLUTION [...] or edited the final report. READING SITE: [facility] Organization Address City/State/Zipcode Phone Number MCKESSON in this encounter Visit Diagnoses Diagnosis Hemoptysis Pulmonary infiltrates Pulmonary eosinophilia
--- OUTSIDE RECORDS SUMMARY | 2018-12-01 15:36 | XMS REPORT | Clinical Summary ---
Author Author [facility] Organization [facility] Address Unknown Phone Unavailable Care Team Providers Care Infrastructure Architect Name Role Phone Eugenia Cuadra COURTNEY PCP Allergies Active Allergy Reactions Severity Noted Date Comments Aspirin 03/02/2007 Allergy recorded in SMS: Aspirin~Reactions: GI UPSET Azithromycin Shortness Of Breath High Reaction: Difficulty breathing; Comment: Zithromax Erythromycin 08/27/2005 Allergy recorded in SMS: ERYTHROMYCIN~Reactions: NAUSEA Erythromycin Base Rash Low Comment: Erythromycin Gabapentin Other (See Comments) Low Reaction: mouth sore/blisters; Comment: Neurontin Ibuprofen Nausea And Vomiting Low 01/27/2017 Vomits up Blood. Pregabalin Other (See Comments) Low Sores around mouth Tetracycline Other (See Comments), Low 01/14/2015 Sores around mouth Swelling Current Medications Prescription Sig. Disp. Refills Start End Date Status Date ALPRAZolam (XANAX) 0.5 MG take 1 tablet (0.5MG) by 1 0 10/31/20 Active tablet oral route 3 times every 13 day mupirocin (BACTROBAN) 2 % Apply 2 g topically as Active ointment needed. albuterol (PROVENTIL) 5 Inhale 2 puffs as needed. Active mg/mL nebulizer solution cholecalciferol, vitamin Take 5,000 Units by mouth Active D3, 1,000 unit tablet daily. aspirin 81 MG EC tablet TAKE ONE TABLET BY MOUTH 90 tablet 3 02/28/20 Active ONCE DAILY 18 KLOR-CON M20 20 mEq TAKE ONE TABLET BY MOUTH 30 tablet 11 04/14/20 Active tablet ONCE DAILY 18 furosemide (LASIX) 40 MG Take 1 tablet in the 135 tablet 1 05/09/20 Active tablet morning and 0.5 tablet at 18 noon fenofibrate 160 mg Take 160 mg by mouth 90 tablet 3 05/15/20 Active TabIndications: Mixed daily. 18 hyperlipidemia metoprolol succinate Take 25 mg by mouth Active (TOPROL-XL) 25 MG 24 hr daily. 1/2 Tab Twice tablet Daily therapeutic multivitamin Take 1 tablet by mouth Active (THERAGRAN) tablet daily. atorvastatin (LIPITOR) 40 TAKE ONE TABLET BY MOUTH 90 tablet 3 Active MG tablet ONCE DAILY 18 VENTOLIN HFA 90 Inhale 2 puffs every 4 18 g 4 10/03/20 10/03/20 Active mcg/actuation HFA (four) hours as needed 18 19 inhalerIndications: for wheezing. shortness of breath, wheezing, cough budesonide-formoterol Inhale 2 puffs 2 (two) 10.2 g 5 10/03/20 Active (SYMBICORT) 160-4.5 times a day. 18 mcg/actuation inhalerIndications: Controller Medication for Asthma montelukast (SINGULAIR) Take 1 tablet (10 mg 30 tablet 5 10/03/20 Active 10 mg tabletIndications: total) by mouth nightly. 18 Controller Medication for Asthma Active Problems Problem Noted Date Pulmonary infiltrates 10/03/2018 Cough 10/03/2018 Nasal drainage 10/03/2018 Hemoptysis 08/30/2018 Pulmonary infiltrates 08/30/2018 Hemoptysis 08/15/2018 Shortness of breath 05/08/2018 Varicose veins of right lower extremity with pain 12/23/2017 Left breast mass 01/05/2017 Overview: [facility]: Left breast lump/pain HISTORY: Ms. Diop is a female who presented to the [facility] on 01/06/2017 at age 51 for evaluation of left breast lump and pain. She felt a left breast lump 6 months to 1 year earlier. She has had intermittent left breast pain for the past 6 months. BREAST IMAGING: Mammogram: -- Bilateral screening mammogram 01/14/15 ([place], [place]) revealed scattered fibroglandular densities. There were [...] supraclavicular or axillary adenopathy. REFERRED BY: Self Personal history of ovarian cancer 01/05/2017 Agatston CAC score 200-399 01/03/2017 Overview: Total Agatston score of 233.2 Visual blurriness 11/20/2015 Status post below knee amputation of left lower extremity (HCC) 11/20/2015 Overview: Overview: Due to poorly healing fx with infection Obesity, Class II, BMI 35-39.9 Former tobacco use Edema Fatigue Dyspnea Essential hypertension Mixed hyperlipidemia Anxiety Asthma Restless leg syndrome Obstructive sleep apnea Overview: Intolerant to CPAP Encounters Date Type Specialty Care Team Description 10/16/2018 Telephone Pulmonology Marlon Johnson MD 10/11/2018 Imaging Radiology Marlon Johnson MD Hemoptysis; Appointment Pulmonary infiltrates 10/11/2018 Imaging Radiology Marlon Johnson MD Cough; Appointment Nasal drainage 10/03/2018 Lab Lab Marlon Johnson MD Moderate persistent asthma without complication 10/03/2018 Office Visit Pulmonology Marlon Johnson MD Moderate persistent asthma without complication (Primary Dx); Hemoptysis; Pulmonary infiltrates; Restless leg syndrome; Obstructive sleep apnea; Cough; Nasal drainage; Need for vaccination 10/03/2018 Procedure Pass Radiology 10/03/2018 Procedure Pass Radiology 09/19/2018 Telephone Pulmonology Marlon Johnson MD 09/16/2018 Refill Cardiology Eladia Pak MD Other 09/15/2018 Telephone Pulmonology Marlon Johnson MD 09/08/2018 Telephone Pulmonology Marlon Johnson MD from Last 3 Months Immunizations Name Dates Previously Given Next Due Pneumococcal Conjugate 10/03/2018 13-Valent Family History Medical History Relation Name Comments Hypertension Brother Coronary artery disease Father Stroke Father Breast cancer Mother Hypertension Mother Breast cancer Sister Relation Name Status Comments Brother Alive Father Alive Mother Alive Sister Alive Social History Tobacco Use Types Packs/Day Years Used Date Former Smoker Cigarettes 2 9 Quit: 1991 Smokeless Tobacco: Never Used Tobacco Cessation: Counseling Given: No Alcohol Use Drinks/Week oz/Week Comments No Sex Assigned at Date Recorded Not on file Last Filed Vital Signs Vital Sign Reading Time Taken Blood Pressure 135/84 10/03/2018 3:20 PM MANUFACTURING TEST ENGINEER Pulse 98 10/03/2018 3:20 PM MANUFACTURING TEST ENGINEER Temperature 36.9 C (98.4 F) 08/30/2018 4:47 PM CDT Respiratory Rate 16 10/03/2018 3:20 PM MANUFACTURING TEST ENGINEER Oxygen Saturation 98% 10/03/2018 3:20 PM MANUFACTURING TEST ENGINEER Inhaled Oxygen - - Concentration Weight 90.7 kg (200 lb) 10/03/2018 3:20 PM MANUFACTURING TEST ENGINEER Height 157.5 cm (5' 2") 10/03/2018 3:20 PM MANUFACTURING TEST ENGINEER Body Mass Index 36.58 10/03/2018 3:20 PM MANUFACTURING TEST ENGINEER Plan of Treatment Health Maintenance Due Date Last Done Comments Hepatitis C Screen 1965 Td # 1965 Colorectal Screening via 2013 Colonoscopy Mammogram Screening 2013 Zoster Vaccine# (1 of 2) 2013 Influenza Vaccine (#1) 2018 Pneumococcal Immunization 11/28/2018 10/03/2018 19-64 Low/Medium Risk# (1 of 1 - PPSV23) Procedures Procedure Name Priority Date/Time Associated Diagnosis Comments CT CHEST WO CONTRAST AND Routine 10/11/2018 Hemoptysis Results for this HIGH RESOLUTION 10:48 AM MANUFACTURING TEST ENGINEER Pulmonary infiltrates procedure are in the results section. CT SINUSES WO CONTRAST Routine 10/11/2018 Cough Results for this 10:48 AM MANUFACTURING TEST ENGINEER Nasal drainage procedure are in the results section. IMMUNOGLOBULIN E Routine 10/03/2018 Moderate persistent Results for this 4:57 PM MANUFACTURING TEST ENGINEER asthma without procedure are in the complication results section. from Last 3 Months Results * CT Chest wo contrast and high resolution (10/11/2018 10:48 AM) Impressions Performed At 1. Subtle scattered mosaic attenuation and air trapping consistent with MEGHANA mild small airway disease. No pulmonary fibrosis. 2. No pulmonary mass or consolidation. ATTESTATION STATEMENT: The Staff Radiologist has personally reviewed the images and dictated, reviewed, or edited the final report. READING SITE: [facility] Narrative Performed At Patient: CURLY MUNGUIA Sex#:F # 1965 Janneth#:[id number] Location:[facility] CT Procedure Requested:[id number] CT CHEST WO CONTRAST AND HIGH RESOLUTION [...] Rad Results In - 10/11/2018 2:59 PM MANUFACTURING TEST ENGINEER Patient: HEATHER MUNGUIA Sex#: F # 1965 Janneth#: [id number] Location: [facility] CT Procedure Requested: [id number] CT CHEST WO CONTRAST AND HIGH RESOLUTION [...] or edited the final report. READING SITE: [facility] Organization Address City/State/Zipcode Phone Number MEGHA[place] * CT Sinuses wo contrast (10/11/2018 10:48 AM) Impressions Performed At No evidence of inflammatory sinonasal disease. MEGHANA ATTESTATION STATEMENT: The Staff Radiologist has personally reviewed the images and dictated, reviewed, or edited the final report. READING SITE: [facility] Narrative Performed At Patient: CURLY MUNGUIA Sex#:F # 1965 Janneth#:[id number] Location:[facility] CT Procedure Requested:[id number] CT SINUSES WO CONTRAST Reason for Exam:Cough [...] Rad Results In - 10/11/2018 12:44 PM MANUFACTURING TEST ENGINEER Patient: HEATHER MUNGUIA Sex#: F # 1965 Janneth#: [id number] Location: [facility] CT Procedure Requested: [id number] CT SINUSES WO CONTRAST Reason for Exam: [...] or edited the final report. READING SITE: [facility] Performing Organization Address [facility] Phone Number MCKESS[place] * Immunoglobulin E (10/03/2018 4:57 PM) IgE Serum 27 0 - 100 IU/mL SLRL Comment: Performed at: - [id number] Store Product Demonstrator: Etelvina Cardenas MD, Phone:[phone] Specimen Blood Performing Organization Address City/[facility]/Zipcode Phone Number [facility] [address] [place] [address] from Last 3 Months
--- OUTSIDE RECORDS SUMMARY | 2018-12-01 15:36 | XMS REPORT | Encounter Summary ---
Author Author [facility] Organization [facility] Address Unknown Phone Unavailable Care Team Providers Care Animal Cruelty Investigation Supervisor Name Role Phone KhalifEugenia zapata COURTNEY PCP Encounter Details Date Type Department Care Team Description 10/03/2018 Procedure [facility], [address] [address] Social History Tobacco Use Types Packs/Day Years Used Date Former Smoker Cigarettes 2 9 Quit: 1991 Smokeless Tobacco: Never Used Alcohol Use Drinks/Week oz/Week Comments No Sex Assigned at Date Recorded Not on file as of this encounter Plan of Treatment Not on fileas of this encounter Visit Diagnoses Not on filein this encounter
--- OUTSIDE RECORDS SUMMARY | 2018-12-01 15:37 | XMS REPORT | Encounter Summary ---
Author Author [facility] Organization [facility] Address Unknown Phone Unavailable Care Team Providers Care Editor Map Name Role Phone PCP Unavailable Encounter Details Date Type Department Care Team Description 09/15/2018 Telephone [facility] Marlon Johnson MD [facility] [address] [facility] [address] [facility] [address] [place] [phone] Social History Tobacco Use Types Packs/Day Years Used Date Former Smoker Cigarettes 2 9 Quit: 1991 Smokeless Tobacco: Never Used Alcohol Use Drinks/Week oz/Week Comments No Sex Assigned at Date Recorded Not on file as of this encounter Miscellaneous Notes * Telephone Encounter - Elvia Sanders MA - 09/15/2018 2:39 PM CDT Patient called complaining of cough with green sputum, no fever with chest tightness. Per Dr. Johnson started patient on Prednisone Taper and refused Levequin. Patient states she is tired of taking antibiotics. Advised patient she needed to be seen in the next few weeks. Will offer a sooner date as soon as Dr. Johnson opens a day up. Patient would like to be seen on the 10/02. in this encounter Plan of Treatment Not on fileas of this encounter Visit Diagnoses Diagnosis Cough - Primary
--- OUTSIDE RECORDS SUMMARY | 2018-12-01 15:37 | XMS REPORT | Encounter Summary ---
Author Author [facility] Organization [facility] Address Unknown Phone Unavailable Care Team Providers Care Shrimp Peeling Machine Tender Name Role Phone PCP Unavailable Encounter Details Date Type Department Care Team Description 09/08/2018 Telephone [facility] Marlon Johnson MD [facility] [address] [facility] [address] [facility] [address] [place] [phone] Social History Tobacco Use Types Packs/Day Years Used Date Former Smoker Cigarettes 2 9 Quit: 1991 Smokeless Tobacco: Never Used Alcohol Use Drinks/Week oz/Week Comments No Sex Assigned at Date Recorded Not on file as of this encounter Miscellaneous Notes * Telephone Encounter - Elvia Sanders MA - 09/08/2018 8:[address] Ghotra - gave patient results. Patient verbalized understanding and was pleased. * Telephone Encounter - Elvia Sanders MA - 09/08/2018 8:37 AM CDT ----- Message from Virgil Ghotra MD sent at 09/08/2018 8:20 AM CDT ----- Regarding: RE: Results I have reviewed the serologic tests along with the bronchoscopy testing; all tests including cytology looking for cancer cells and all cultures are negative to date. If you're allowed to call and relay that awesome, else I am happy to. --ABS ----- Message ----- From: Elvia Sanders MA Sent: 09/07/2018 3:31 PM To: Virgil Ghotra MD Subject: Results Dr. Johnson ordered a Bronch, Dr. Blake performed on 08/30/18. Both are out on vacation and patient is requesting results. Can you help? Thanks in advance, Elvia in this encounter Plan of Treatment Not on fileas of this encounter Visit Diagnoses Not on filein this encounter
--- OUTSIDE RECORDS SUMMARY | 2018-12-01 15:37 | XMS REPORT | Encounter Summary ---
Author Author [facility] Organization [facility] Address Unknown Phone Unavailable Care Team Providers Care Biosolids Management Technician Name Role Phone PCP Unavailable Reason for Visit * Reason Comments Other Encounter Details Date Type Department Care Team Description 09/16/2018 Refill [facility] Eladia Pak MD Other Cardiovascular [address] [facility] [address] [address] [place] [address] [address] [place] [address] [phone] Social History Tobacco Use Types Packs/Day Years Used Date Former Smoker Cigarettes 2 9 Quit: 1991 Smokeless Tobacco: Never Used Alcohol Use Drinks/Week oz/Week Comments No Sex Assigned at Date Recorded Not on file as of this encounter Plan of Treatment Not on fileas of this encounter Visit Diagnoses Not on filein this encounter
--- OUTSIDE RECORDS SUMMARY | 2018-12-01 15:37 | XMS REPORT | Continuity of Care Document ---
Author Author [facility] Organization [facility] Address Unknown Phone Unavailable Allergies Active Description Code Type Severity Reaction Onset Reported/Identified Relationship to Patient Clinical Status Yes aspirin [id number] Drug Allergy Unknown N/V 05/21/2010 Yes azithromycin [id number] Drug Allergy Unknown SOB, SWELLING, 05/21/2010 Yes erythromycin base [id number] Drug Allergy Unknown SORES AROUND [place] 2009 Yes gabapentin [id number] Drug Allergy Unknown SORES AROUND [place] 05/21/2010 Yes pregabalin [id number] Drug Allergy Unknown SORES AROUND [place] 05/21/2010 Yes tetracycline [id number] Drug Allergy Unknown SORES AROUND [place] 05/21/2010 Medications There is no data. Problems Date Dx Coded Attending Type Code Diagnosis Diagnosed By 06/03/2010 Ot 272.0 06/03/2010 Ot 285.9 06/03/2010 Ot 401.9 06/03/2010 Ot 458.29 06/03/2010 Ot 486 06/03/2010 Ot 530.81 06/03/2010 Ot 553.3 06/03/2010 Ot 560.1 06/03/2010 Ot 997.39 06/03/2010 Ot 997.4 06/03/2010 Ot V49.70 06/03/2010 Ot V57.1 09/16/2010 Ot 625.9 09/16/2010 Ot 791.9 02/06/2015 Ot V76.12 10/01/2015 Ot 787.01 10/01/2015 Ot 530.81 10/01/2015 Ot 553.3 10/01/2015 Ot 553.3 10/01/2015 Ot V72.81 10/01/2015 Ot V74.8 10/01/2015 Ot 625.9 10/01/2015 ELENA SANDOVAL DO Ot 726.2 10/01/2015 Ot V76.12 10/01/[address] EXTRACTOR MACHINE OPERATOR Ot S60.221A CONTUSION OF RIGHT HAND, INITIAL ENCOUNT 10/01/[address] APRN Ot W22.8XXA STRIKING AGAINST OR STRUCK BY OTHER OBJE 10/01/[address] APRN Ot Y92.[address] OR NOT APPLICABLE 10/01/[address] APRN Ot Y99.8 OTHER EXTERNAL CAUSE STATUS 03/12/2016 ELENA SANDOVAL DO Ot 726.2 SHOULDER REGION DIS NEC 03/12/2016 Ot V76.12 OTH SCREEN MAMMO-MALIGN NEOPLASM OF JOSE 03/12/[address] APRN Ot F17.210 NICOTINE DEPENDENCE, CIGARETTES, UNCOMPL 03/12/[address] APRN Ot M23.91 UNSPECIFIED INTERNAL DERANGEMENT OF RIGH 03/12/[address] APRN Ot Z89.612 ACQUIRED ABSENCE OF LEFT LEG ABOVE KNEE 03/15/[address] APRN Ot F17.210 NICOTINE DEPENDENCE, CIGARETTES, UNCOMPL 03/15/[address] APRN Ot M23.91 UNSPECIFIED INTERNAL DERANGEMENT OF RIGH 03/15/[address] APRN Ot Z89.612 ACQUIRED ABSENCE OF LEFT LEG ABOVE KNEE 03/22/2016 ELENA SANDOVAL DO Ot 726.2 SHOULDER REGION DIS NEC 03/22/2016 Ot V76.12 OTH SCREEN MAMMO-MALIGN NEOPLASM OF JOSE 03/23/2016 CHENG DO AESTON F Ot S83.241A OTH TEAR OF MEDIAL MENISCUS, CURRENT INJ 03/23/2016 CHENG DO EASTON F Ot X39.8XXA OTHER EXPOSURE TO FORCES OF NATURE, INIT 03/23/2016 CHENG DO EASTON F Ot Y99.8 OTHER EXTERNAL CAUSE STATUS 03/23/2016 CHENG DO, EASTON F Ot S83.241A OTH TEAR OF MEDIAL MENISCUS, CURRENT INJ 03/23/2016 CHENG DO, EASTON F Ot X39.8XXA OTHER EXPOSURE TO FORCES OF NATURE, INIT 03/23/2016 CHENG DO, EASTON F Ot Y99.8 OTHER EXTERNAL CAUSE STATUS 04/09/2016 CHENG DO, EASTON F Ot S83.241A OTH TEAR OF MEDIAL MENISCUS, CURRENT INJ 04/09/2016 CHENG DO EASTON F Ot X39.8XXA OTHER EXPOSURE TO FORCES OF NATURE, INIT 04/09/2016 EASTON ANAND DO Ot Y99.8 OTHER EXTERNAL CAUSE STATUS 06/19/2017 PAT NAJERA DO Ot J45.909 UNSPECIFIED ASTHMA, UNCOMPLICATED 06/19/2017 PAT NAJERA DO Ot M79.604 PAIN IN RIGHT LEG 06/19/2017 DANIA PAT CHASE Ot S86.911A STRAIN OF UNSP MUSC/TEND AT LOWER LEG LE 06/19/2017 DANIA CHASE PAT Sanchez Ot W51.XXXA ACCIDENTAL STRIKE OR BUMPED INTO BY ANOT 06/19/2017 DANIA CHASE PAT Sanchez Ot Z87.59 PERSONAL HISTORY OF COMP OF PREG, CHLDBR 06/19/2017 DANIA CHASE PAT Sanchez Ot Z89.512 ACQUIRED ABSENCE OF LEFT LEG BELOW KNEE 06/19/2017 DANIA PAT Sanchez Ot Z90.710 ACQUIRED ABSENCE OF BOTH CERVIX AND UTER 06/19/2017 DANIA PAT Sanchez Ot Z98.890 OTHER SPECIFIED POSTPROCEDURAL STATES 06/19/2017 ELENA SANDOVAL DO Ot 726.2 SHOULDER REGION DIS NEC 06/19/2017 Ot V76.12 OTH SCREEN MAMMO-MALIGN NEOPLASM OF JOSE 06/19/2017 CHENG CHASE EASTON Cortez Ot S83.241A OTH TEAR OF MEDIAL MENISCUS, CURRENT INJ 06/19/2017 EASTON ANAND DO Ot X39.8XXA OTHER EXPOSURE TO FORCES OF NATURE, INIT 06/19/2017 EASTON ANAND DO Ot Y99.8 OTHER EXTERNAL CAUSE STATUS Procedures There is no data. Results There is no data. Encounters ACCT No. Visit Date/Time Discharge Status Pt. Type Provider Facility Loc./Unit Complaint [id number] 06/19/2017 09:21:00 06/19/2017 10:48:00 DIS Emergency PAT NAJERA DO [facility] ER R FOOT/LEG PAIN [id number] 03/22/2016 10:50:00 03/22/2016 23:59:59 CLS Outpatient CHENG EASTON CHASE [facility] RAD MMT RIGHT KNEE [id number] 03/12/2016 12:23:00 03/12/2016 13:52:[address] APRN [facility] ER RIGHT KNEE PAIN/SWELLING [id number] 10/01/2015 16:49:00 10/01/2015 17:46:[address] APRN [facility] ER R HAND INJ [id number] 10/18/2014 12:45:00 10/18/2014 23:59:59 CLS Preadmit TALHA SANCHEZ, LORENA Braswell [facility] RAD SCREENING [id number] 11/15/2013 08:48:00 11/15/2013 23:59:59 CLS Outpatient ELENA SANDOVAL DO [facility] RAD RT SHOULDER IMPENGMENT [id number] 12/01/2018 15:30:00 ACT Emergency ELENA FISHMAN MD [facility] ER ABDOMINAL PAIN [id number] 10/01/2015 16:50:00 Document Registration [id number] 10/01/2015 16:50:00 Document Registration [id number] 01/14/2015 09:57:00 Document Registration [id number] 06/18/2010 15:22:00 Document Registration [id number] 06/18/2010 15:07:00 Document Registration [id number] 05/29/2010 13:35:00 Document Registration [id number] 05/21/2010 10:21:00 Document Registration [id number] 05/07/2010 08:44:00 Document Registration [id number] 04/29/2010 07:38:00 Document Registration
--- OUTSIDE RECORDS SUMMARY | 2018-12-01 15:37 | XMS REPORT | Encounter Summary ---
Author Author [facility] Organization [facility] Address Unknown Phone Unavailable Care Team Providers Care Refinish Technician Name Role Phone PCP Unavailable Encounter Details Date Type Department Care Team Description 09/19/2018 Telephone [facility] Marlon Johnson MD [facility] [address] [facility] [address] [facility] [address] [place] [id number] Social History Tobacco Use Types Packs/Day Years Used Date Former Smoker Cigarettes 2 9 Quit: 1991 Smokeless Tobacco: Never Used Alcohol Use Drinks/Week oz/Week Comments No Sex Assigned at Date Recorded Not on file as of this encounter Miscellaneous Notes * Telephone Encounter - Elvia Sanders MA - 09/19/2018 3:42 PM MANAGER COPY Patient called complaining of a headache, higher blood pressure and non stop coughing. Per Dr. Johnson advised patient that Prednisone can cause a headache high blood pressure. Also with all of the coughing that can cause a headache as well. Advised patient that we can no longer treat over the phone and if she continues to have any or worsening symptoms to go to the ER. Patient verbalized understanding. in this encounter Plan of Treatment Not on fileas of this encounter Visit Diagnoses Not on filein this encounter
[2018-12-01] MEDS ORDERED: fentaNYL INJECTION 100 MCG/2 ML AMP IVP ONE ×2 (15:45→16:45)
[2018-12-01 15:55] LABS: BASOPHILS # (AUTO) 0.1 10^3/uL (0.0-0.1); BASOPHILS % (AUTO) 1 % (0-10); EOSINOPHILS # (AUTO) 0.2 10^3/uL (0.0-0.3); EOSINOPHILS % (AUTO) 3 % (0-10); HEMATOCRIT 38 % (35-52); HEMOGLOBIN 12.4 G/DL (11.5-16.0); LYMPHOCYTES # (AUTO) 2.9 X 10^3 (1.0-4.0); LYMPHOCYTES % (AUTO) 39 % (12-44); MEAN CORPUSCULAR HEMOGLOBIN 29 PG (25-34); MEAN CORPUSCULAR HGB CONC 32 G/DL (32-36); MEAN CORPUSCULAR VOLUME 89 FL (80-99); MONOCYTES # (AUTO) 0.6 X 10^3 (0.0-1.0); MONOCYTES % (AUTO) 7 % (0-12); NEUTROPHILS # (AUTO) 3.7 X 10^3 (1.8-7.8); NEUTROPHILS % (AUTO) 50 % (42-75); PLATELET COUNT 291 10^3/uL (130-400); RED BLOOD COUNT 4.32 10^6/uL (4.35-5.85); RED CELL DISTRIBUTION WIDTH 14.6 % (10.0-14.5); WHITE BLOOD COUNT 7.4 10^3/uL (4.3-11.0)
[2018-12-01 16:11] LABS: BILIRUBIN,URINE NEGATIVE (NEGATIVE); CLARITY,URINE CLEAR; COLOR,URINE YELLOW; GLUCOSE, URINE (UA) NEGATIVE (NEGATIVE); KETONES,URINE NEGATIVE (NEGATIVE); LEUKOCYTE ESTERASE ,URINE NEGATIVE (NEGATIVE); NITRITE,URINE NEGATIVE (NEGATIVE); PH,URINE 5 (5-9); PROTEIN,URINE 1+ (NEGATIVE); UROBILINOGEN,URINE 1 MG/DL (NORMAL)
[2018-12-01 16:22] LABS: BACTERIA,URINE NEGATIVE /HPF
[2018-12-01 16:40] LABS: ALANINE AMINOTRANSFERASE 28 U/L (0-55); ALBUMIN 4.3 GM/DL (3.2-4.5); ALKALINE PHOSPHATASE 53 U/L (40-136); AMYLASE 126 U/L (25-125); BILIRUBIN,TOTAL 0.4 MG/DL (0.1-1.0); BUN/CREATININE RATIO 18; CALCIUM 9.3 MG/DL (8.5-10.1); CARBON DIOXIDE 27 MMOL/L (21-32); CHLORIDE 105 MMOL/L (98-107); CREATININE SERUM 0.87 MG/DL (0.60-1.30); GFR ESTIMATED > 60; GLUCOSE 86 MG/DL (70-105); LIPASE 93 U/L (8-78); POTASSIUM 3.8 MMOL/L (3.6-5.0); SODIUM 146 MMOL/L (135-145); TOTAL PROTEIN 7.3 GM/DL (6.4-8.2)
[2018-12-01] MEDS ORDERED: IOHEXOL 350 MG/ML 100 ML (OMNIPAQUE 350) VIAL IV ONE (17:00)
[2018-12-01] MEDS ORDERED: CATHETER FLUSH 10 ML SYR IV PRN (17:00)
[2018-12-01] MEDS ORDERED: RECEIVED CONTRAST (Hold Metformin) IV SCH (17:00)
[2018-12-01] MEDS ORDERED: NS 100 ML (IVPB) BAG IV ONE (17:00)
--- NOTE | 2018-12-01 17:29 | Diagnostic Imaging Report ---
PROCEDURE: CT abdomen and pelvis with contrast. TECHNIQUE: Multiple contiguous axial images were obtained through the abdomen and pelvis after administration of intravenous contrast. INDICATION: Sharp epigastric pain. FINDINGS: Lung bases are clear. Liver appears normal. Gallbladder is surgically absent. Pancreas is normal. Spleen is not enlarged. There is a small accessory spleen. Adrenals are normal. There are 2 cysts on the upper pole of the right kidney. Left kidney is normal. There is some calcific atherosclerosis of the aorta but no aneurysm. Small bowel is not dilated. The appendix is normal. There is a moderate amount of stool in the colon. Uterus is surgically absent. Urinary bladder is unremarkable. IMPRESSION: Fecal stasis. No acute abnormality is seen in the abdomen or pelvis. Dictated by: Dictated on workstation # [id number]
[2018-12-01] MEDS ORDERED: TRAM50TA2 PO (18:02)
--- NOTE | 2018-12-01 18:02 | ED Abdominal Pain ---
General Chief Complaint: Abdominal/GI Problems Stated Complaint: ABDOMINAL PAIN Nursing Triage Note: Pt stated that her abdominal pain started around 2200 last night. She stated that she has been sleeping all day. She stated her middle upper and bilateral upper abdomen hurt. She stated it radiates to back and into chest. Pt is alert and orineted at arrival and amulated to room 8. Sepsis Screen: No Definite Risk Source of Information: Patient Exam Limitations: No Limitations History of Present Illness Date Seen by Provider: Dec 01, 2018 Time Seen by Provider: 15:40 Initial Comments 52-year-old female who presents to the emergency room with complaints of right upper abdomen pain that radiates to her epigastric area that started last night around 2200. She reports the pain radiating into her back. She denies any shortness of breath, chest pain, nausea and vomiting. Denies fevers. Timing/Duration: 12-24 Hours Severity/Quality: Sharp Location: RUQ Radiation: RUQ, Back, Epigastric Associated Symptoms: Denies Symptoms Allergies and Home Medications Allergies Coded Allergies: Aspirin (Unverified Allergy, N/V, 05/21/10) Azithromycin (Unverified Allergy, SOB, SWELLING, HIVES, 05/21/10) Erythromycin Base (Unverified Allergy, SORES AROUND MOUTH, 05/21/10) Gabapentin (Unverified Allergy, SORES AROUND MOUTH, 05/21/10) Pregabalin (Unverified Allergy, SORES AROUND MOUTH, ITCHING, 05/21/10) Tetracycline (Unverified Allergy, SORES AROUND MOUTH, 05/21/10) Home Medications Albuterol 17 Gm Aerosol, 17 GM IH NEEDED, (Reported) Alprazolam 0.5 Mg Tablet, 0.5 MG PO for ANXIETY, (Reported) Hydrocodone/Acetaminophen 1 Each Tablet, 1 EACH PO for PAIN, (Reported) Lisinopril 20 Mg Tablet, 1 EACH PO DAILY, (Reported) Simvastatin 20 Mg Tab, 20 MG PO HS, (Reported) Tramadol HCl 50 Mg Tablet, 50 MG PO Q6H PRN for PAIN-MILD Prescribed by: KANDI MENCHACA on 12/01/18 4072 Patient Home Medication List Home Medication List Reviewed: Yes Review of Systems Review of Systems Constitutional: no symptoms reported, see HPI Gastrointestinal: See HPI, Abdominal Pain All Other Systems Reviewed Negative Unless Noted: Yes Past Qmykzqy-Oiqsmo-Pruexg Hx Past Med/Social Hx: Reviewed Nursing Past Med/Soc Hx Patient Social History Alcohol Use: Denies Use Number of Drinks Today: Alcohol Beverage of Choice: Wine Recreational Drug Use: Yes ( A TEEN) Smoking Status: Former Smoker Type Used: Cigarettes Former Smoker, Quit: Jun 27, 1996 Recent Foreign Travel: No Contact w/Someone Who Travel: No Recent Infectious Disease Expo: No Recent Hopitalizations: Yes Physical Abuse: No Sexual Abuse: No Mistreated: No Fear: No Past Medical History Surgeries: Yes (2 leg amputations, 3 surgeries on lefT LEG) Amputation, Section, Gallbladder, Hysterectomy, Orthopedic Respiratory: Yes Asthma Cardiac: No High Cholesterol Neurological: No Reproductive Disorders: No Sexually Transmitted Disease: No Genitourinary: No Gastrointestinal: No Musculoskeletal: Yes (osteomylitis) Amputee Endocrine: No Cancer: Yes Cervical Psychosocial: No Integumentary: Yes (OSTEOMYELITIS) Blood Disorders: No Family Medical History Reviewed Nursing Family Hx Physical Exam Vital Signs Vital Signs - First Documented 12/01/18 16:42 Temp 98.5 Pulse 88 Resp 18 B/P (MAP) 118/69 (85) Pulse Ox 97 O2 Delivery Room Air Capillary Refill : Less Than 3 Seconds Height/Weight/BMI Height: 5'2.00" Weight: 199lbs. 0oz. 90.812389qe; 34.38 BMI Method:Stated General Appearance: WD/WN, no apparent distress Respiratory: chest non-tender, lungs clear, normal breath sounds, no respiratory distress, no accessory muscle use Cardiovascular: normal peripheral pulses, regular rate, rhythm, no edema, no gallop, no JVD, no murmur Gastrointestinal: normal bowel sounds, non tender, soft, no organomegaly, no pulsatile mass Extremities: normal capillary refill Neurologic/Psychiatric: alert, normal mood/affect, oriented x 3 Skin: normal color, warm/dry Progress/Results/Core Measures Results/Orders Lab Results Laboratory Tests Test 12/01/18 15:48 Range/Units White Blood Count 7.4 4.3-11.0 10^3/uL Red Blood Count 4.32 L 4.35-5.85 10^6/uL Hemoglobin 12.4 11.5-16.0 G/DL Hematocrit 38 35-52 % Mean Corpuscular Volume 89 80-99 FL Mean Corpuscular Hemoglobin 29 25-34 PG Mean Corpuscular Hemoglobin Concent 32 32-36 G/DL Red Cell Distribution Width 14.6 H 10.0-14.5 % Platelet Count 291 130-400 10^3/uL Mean Platelet Volume 10.0 7.4-10.4 FL Neutrophils (%) (Auto) 50 42-75 % Lymphocytes (%) (Auto) 39 12-44 % Monocytes (%) (Auto) 7 0-12 % Eosinophils (%) (Auto) 3 0-10 % Basophils (%) (Auto) 1 0-10 % Neutrophils # (Auto) 3.7 1.8-7.8 X 10^3 Lymphocytes # (Auto) 2.9 1.0-4.0 X 10^3 Monocytes # (Auto) 0.6 0.0-1.0 X 10^3 Eosinophils # (Auto) 0.2 0.0-0.3 10^3/uL Basophils # (Auto) 0.1 0.0-0.1 10^3/uL Urine Color YELLOW Urine Clarity CLEAR Urine pH 5 5-9 Urine Specific [place] 1.025 H 1.016-1.022 Urine Protein 1+ H NEGATIVE Urine Glucose (UA) NEGATIVE NEGATIVE Urine Ketones NEGATIVE NEGATIVE Urine Nitrite NEGATIVE NEGATIVE Urine Bilirubin NEGATIVE NEGATIVE Urine Urobilinogen 1 NORMAL MG/DL Urine Leukocyte Esterase NEGATIVE NEGATIVE Urine RBC (Auto) NEGATIVE NEGATIVE Urine RBC NONE /HPF Urine WBC NONE /HPF Urine Squamous Epithelial Cells 5-10 /HPF Urine Crystals NONE /LPF Urine Bacteria NEGATIVE /HPF Urine Casts NONE /LPF Urine Mucus MODERATE H /LPF Urine Culture Indicated NO Sodium Level 146 H 135-145 MMOL/L Potassium Level 3.8 3.6-5.0 MMOL/L Chloride Level 105 98-107 MMOL/L Carbon Dioxide Level 27 21-32 MMOL/L Anion Gap 14 5-14 MMOL/L Blood Urea Nitrogen 16 7-18 MG/DL Creatinine 0.87 0.60-1.30 MG/DL Estimat Glomerular Filtration Rate > 60 BUN/Creatinine Ratio 18 Glucose Level 86 70-105 MG/DL Calcium Level 9.3 8.5-10.1 MG/DL Corrected Calcium 9.1 8.5-10.1 MG/DL Total Bilirubin 0.4 0.1-1.0 MG/DL Aspartate Amino Transf (AST/SGOT) 19 5-34 U/L Alanine Aminotransferase (ALT/SGPT) 28 0-55 U/L Alkaline Phosphatase 53 40-136 U/L Total Protein 7.3 6.4-8.2 GM/DL Albumin 4.3 3.2-4.5 GM/DL Amylase Level 126 H 25-125 U/L Lipase 93 H 8-78 U/L My Orders Orders - KANDI MENCHACA Comprehensive Metabolic Panel (12/01/18 15:39) Lipase (12/01/18 15:39) Amylase (12/01/18 15:39) Ua Culture If Indicated (12/01/18 15:39) Saline Lock/Iv-Start (12/01/18 15:39) Cbc With Automated Diff (12/01/18 15:39) Fentanyl Injection (Sublimaze Injection (12/01/18 15:45) Fentanyl Injection (Sublimaze Injection (12/01/18 16:45) Ct Abdomen/Pelvis W (12/01/18 16:43) Iohexol Injection (Omnipaque 350 Mg/Ml 1 (12/01/18 17:00) Contrast Received (Contrast Received) (12/01/18 17:00) Sodium Chloride Flush (Catheter Flush Sy (12/01/18 17:00) Ns (Ivpb) (Sodium Chloride 0.9% Ivpb Bag (12/01/18 17:00) Medications Given in ED Vital Signs/I&O 12/01/18 12/01/18 16:42 18:16 Temp 98.5 97.9 Pulse 88 72 Resp 18 18 B/P (MAP) 118/69 (85) 110/75 (87) Pulse Ox 97 97 O2 Delivery Room Air Room Air Blood Pressure Mean: 85 Progress Progress Note : Time: 18:01 Progress Note I have seen and evaluated the patient I've informed her of her laboratory findings and imaging studies. She has had mild relief of pain after second dose of fentanyl. She agrees with plan of care, plans for discharge, return precautions were given. Diagnostic Imaging Diagonstic Imaging: CT Plain Films/CT/US/NM/MRI: abdomen, pelvis Comments [facility] [place] NAME: NASREEN MUNGUIA [facility] REC#: [id number] PT STATUS: REG ER : 1965 PHYSICIAN: KANDI MENCHACA HOOP COILER ADMIT DATE: 12/01/18/ER Draft Date of Exam:12/01/18 CT ABDOMEN/PELVIS W PROCEDURE: CT abdomen and pelvis with contrast. TECHNIQUE: Multiple contiguous axial images were obtained through the abdomen and pelvis after administration of intravenous contrast. INDICATION: Sharp epigastric pain. FINDINGS: Lung bases are clear. Liver appears normal. Gallbladder is surgically absent. Pancreas is normal. Spleen is not enlarged. There is a small accessory spleen. Adrenals are normal. There are 2 cysts on the upper pole of the right kidney. Left kidney is normal. There is some calcific atherosclerosis of the aorta but no aneurysm. Small bowel is not dilated. The appendix is normal. There is a moderate amount of stool in the colon. Uterus is surgically absent. Urinary bladder is unremarkable. IMPRESSION: Fecal stasis. No acute abnormality is seen in the abdomen or pelvis. Dictated on workstation # [id number] Dict: 12/01/18 1708 Trans: 12/01/18 1729 ISABELLE [id number] Interpreted by: CHARO BONDS MD Electronically signed by: Reviewed: Reviewed by Me Departure Impression Primary Impression: Epigastric abdominal pain Disposition: HOME, SELF-CARE Condition: Stable/Unchanged Departure-Patient Inst. Decision time for Depature: 18:01 Referrals: NO,LOCAL PHYSICIAN (PCP/Family) Primary Care Physician Patient Instructions: Acute Abdomen (Belly Pain), Adult (DC) Add. Discharge Instructions: Take medications as directed. Use your Zofran that she has prescribed 2 you if you should become nauseated. Follow-up with her primary care provider within 1 week for recheck. Return back to the emergency room for worsening symptoms or concerns as needed. All discharge instructions reviewed with patient and/or family. Voiced understanding. Scripts Tramadol HCl (Tramadol HCl) 50 Mg Tablet 50 MG PO Q6H PRN for PAIN-MILD, #14 TAB Prov: KANDI MENCHACA 12/01/18 KANDI MENCHACA Dec 01, 2018 18:02
[2018-12-01 18:16] VITALS: BP 110/75
== END 2018-12-01 18:16 | disposition home or self-care (01) ==
LOC: EDUNIT# 15:29 → ER 15:30
DX: R10.13 Epigastric pain (principal); J45.909 Unspecified asthma, uncomplicated; E78.00 Pure hypercholesterolemia, unspecified; Z85.41 Personal history of malignant neoplasm of cervix uteri; Z88.0 Allergy status to penicillin; Z88.8 Allergy status to other drugs, medicaments and biological substances; Z98.890 Other specified postprocedural states; Z90.710 Acquired absence of both cervix and uterus; Z88.1 Allergy status to other antibiotic agents; Z79.51 Long term (current) use of inhaled steroids; Z87.891 Personal history of nicotine dependence
CPT/HCPCS: 36415; 74177; 80053; 81000; 82150; 83690; 85025

== ENCOUNTER 2019-11-06 13:23 | Emergency (ER) | payer MEDICAID, OTHER ==
[~2019-11-06] VITALS: Ht 157 cm; Wt 88.1 kg
[~2019-11-06 13:23] MED LIST changes: +TRAM50TA2 PO
--- NOTE | 2019-11-06 13:52 | ED Cardiac General ---
History of Present Illness General Chief Complaint: Cardiac/General Problems Stated Complaint: LOW HR/BP Source: patient Exam Limitations: no limitations History of Present Illness Date Seen by Provider: Nov 06, 2019 Time Seen by Provider: 13:39 Initial Comments Patient presents ER by private conveyance with her sister from home being sent here by her home health care nurse after evaluation demonstrating she had blood pressure in the 90s to 110 systolic and oxygen sats it would dip down from the mid 90s to the mid 80s. She does not use oxygen at baseline. Use to smoke decad es ago. She just discharged from [place] for a pacemaker placement secondary to symptomatic bradycardia. 2 days ago. She's had malaise back pain and fatigue feeling lightheaded like she is going to pass out but just tingly all over. She denies a history of anxiety or taking any medicines for that. She's not had any wheezing or coughing. She does have a history of COPD but has not needed her breathing treatment since before her hospitalization last week. She is not having a cough. No fevers or chills. No nausea vomiting. No chest pain. She does have a history of coronary artery disease but denies any stents, CABG or valvular disease. She is on aspirin but no blood thinners. She takes medicines for hyperlipidemia. She has a history of CHF and states that her home health nurse auscultated crackles in her bases. She used to be on metoprolol but about a month ago that was stopped due to low blood pressure and low heart rate. Her pacemaker is a Medtronic. Her EP bill distributor and regular bill distributor as well as primary care doctor are all at [facility]. She denies any dysuria constipation diarrhea abdominal pain or rash. She denies having any shortness of breath before during or after her examination by home health nurse but the home health nurse called in and said she was showing fatigue and complaining of backache which was unusual for her. Allergies and Home Medications Allergies Coded Allergies: Aspirin (Unverified Allergy, N/V, 05/21/10) Azithromycin (Unverified Allergy, SOB, SWELLING, HIVES, 05/21/10) Erythromycin Base (Unverified Allergy, SORES AROUND MOUTH, 05/21/10) Gabapentin (Unverified Allergy, SORES AROUND MOUTH, 05/21/10) Pregabalin (Unverified Allergy, SORES AROUND MOUTH, ITCHING, 05/21/10) Tetracycline (Unverified Allergy, SORES AROUND MOUTH, 05/21/10) Home Medications Albuterol 17 Gm Aerosol, 17 GM IH NEEDED, (Reported) Alprazolam 0.5 Mg Tablet, 0.5 MG PO for ANXIETY, (Reported) Hydrocodone/Acetaminophen 1 Each Tablet, 1 EACH PO for PAIN, (Reported) Lisinopril 20 Mg Tablet, 1 EACH PO DAILY, (Reported) Simvastatin 20 Mg Tab, 20 MG PO HS, (Reported) Tramadol HCl 50 Mg Tablet, 50 MG PO Q6H PRN for PAIN-MILD Prescribed by: KANDI MENCHACA on 12/01/18 180 Patient Home Medication List Home Medication List Reviewed: Yes Review of Systems Review of Systems Constitutional: No chills, No diaphoresis EENTM: No Blurred Vision, No Double Vision Respiratory: Denies Cough, Denies Shortness of Air, Denies Wheezing Gastrointestinal: Denies Abdomen Distended, Denies Abdominal Pain, Denies Constipated, Denies Diarrhea, Denies Nausea, Denies Poor Fluid Intake, Denies Vomiting Genitourinary: Denies Burning, Denies Discharge Musculoskeletal: back pain; No gout, No joint pain Skin: No change in color, No lesions Psychiatric/Neurological: Anxiety; Denies Depressed, Denies Headache Endocrine: Denies Excessive Sweating, Denies Flushing All Other Systems Reviewed Negative Unless Noted: Yes Past Cbjtpll-Fvmemt-Gpslza Hx Patient Social History Alcohol Use: Regular Use Alcohol Beverage of Choice: Wine Recreational Drug Use: No Smoking Status: Former Smoker Type Used: Cigarettes Former Smoker, Quit: Jun 27, 1996 Recent Foreign Travel: Yes Recent Hopitalizations: Yes Past Medical History Surgeries: Yes (2 leg amputations, 3 surgeries on lefT LEG) Amputation, Section, Gallbladder, Hysterectomy, Orthopedic Respiratory: Yes Asthma Cardiac: No High Cholesterol Neurological: No Reproductive Disorders: No Sexually Transmitted Disease: No Genitourinary: No Gastrointestinal: No Musculoskeletal: Yes (osteomylitis) Amputee Endocrine: No Cancer: Yes Cervical Psychosocial: No Integumentary: Yes (OSTEOMYELITIS) Blood Disorders: No Physical Exam Vital Signs Vital Signs - First Documented 11/06/19 13:25 Temp 36.1 Pulse 71 Resp 12 B/P (MAP) 132/68 (89) Pulse Ox 98 Capillary Refill : Height, Weight, BMI Height: 5'2.00" Weight: 199lbs. 0oz. 90.747265yi; 34.38 BMI Method:Stated General Appearance: WD/WN, Anxious HEENT: PERRL/EOMI, Pharynx Normal, Moist Mucous Membranes Neck: Full Range of Motion, Normal Inspection, Non Tender, Supple; No JVD Respiratory: Chest Non Tender, Lungs Clear, Normal Breath Sounds, No Accessory Muscle Use, No Respiratory Distress Cardiovascular: Regular Rate, Rhythm, No Edema, Normal Peripheral Pulses Gastrointestinal: Normal Bowel Sounds, No Organomegaly, Non Tender, Soft Extremity: Normal Capillary Refill, Normal Inspection, Non Tender, No Pedal Edema Neurologic/Psychiatric: Alert, Oriented x3, No Motor/Sensory Deficits Skin: Normal Color, Warm/Dry Progress/Results/Core Measures Results/Orders Lab Results Laboratory Tests Test 11/06/19 13:54 Range/Units White Blood Count 7.9 4.3-11.0 10^3/uL Red Blood Count 4.14 L 4.35-5.85 10^6/uL Hemoglobin 11.9 11.5-16.0 G/DL Hematocrit 37 35-52 % Mean Corpuscular Volume 88 80-99 FL Mean Corpuscular Hemoglobin 29 25-34 PG Mean Corpuscular Hemoglobin Concent 33 32-36 G/DL Red Cell Distribution Width 14.3 10.0-14.5 % Platelet Count 208 130-400 10^3/uL Mean Platelet Volume 10.6 H 7.4-10.4 FL Neutrophils (%) (Auto) 55 42-75 % Lymphocytes (%) (Auto) 33 12-44 % Monocytes (%) (Auto) 8 0-12 % Eosinophils (%) (Auto) 3 0-10 % Basophils (%) (Auto) 1 0-10 % Neutrophils # (Auto) 4.3 1.8-7.8 X 10^3 Lymphocytes # (Auto) 2.6 1.0-4.0 X 10^3 Monocytes # (Auto) 0.6 0.0-1.0 X 10^3 Eosinophils # (Auto) 0.2 0.0-0.3 10^3/uL Basophils # (Auto) 0.1 0.0-0.1 10^3/uL Sodium Level 140 135-145 MMOL/L Potassium Level 3.6 3.6-5.0 MMOL/L Chloride Level 99 98-107 MMOL/L Carbon Dioxide Level 28 21-32 MMOL/L Anion Gap 13 5-14 MMOL/L Blood Urea Nitrogen 15 7-18 MG/DL Creatinine 0.72 0.60-1.30 MG/DL Estimat Glomerular Filtration Rate > 60 BUN/Creatinine Ratio 21 Glucose Level 78 70-105 MG/DL Calcium Level 9.1 8.5-10.1 MG/DL Corrected Calcium 9.1 8.5-10.1 MG/DL Magnesium Level 1.9 1.6-2.4 MG/DL Total Bilirubin 0.3 0.1-1.0 MG/DL Aspartate Amino Transf (AST/SGOT) 27 5-34 U/L Alanine Aminotransferase (ALT/SGPT) 33 0-55 U/L Alkaline Phosphatase 80 40-136 U/L Troponin I < 0.30 <0.30 NG/ML C-Reactive Protein 0.69 H <0.50 MG/DL Pro-B-Type Natriuretic Peptide 84.5 H <75.0 PG/ML Total Protein 6.9 6.4-8.2 GM/DL Albumin 4.0 3.2-4.5 GM/DL My Orders Orders - ADALGISA,ALEX J Cbc With Automated Diff (11/06/19 13:43) Comprehensive Metabolic Panel (11/06/19 13:43) Ekg Tracing (11/06/19 13:43) Continuous Ekg Monitoring (11/06/19 13:43) Troponin I Fs (11/06/19 13:43) Probnp Fs (11/06/19 13:43) Crp Fs (11/06/19 13:43) Chest Pa/Lat (2 View) (11/06/19 13:43) Magnesium (11/06/19 13:43) Ua Culture If Indicated (11/06/19 13:43) Vital Signs/I&O 11/06/19 13:25 Temp 36.1 Pulse 71 Resp 12 B/P (MAP) 132/68 (89) Pulse Ox 98 Progress Progress Note #1: Time: 13:52 Progress Note Patient presents with vague symptoms and concerning vital signs that we were unable to reproduce on her initial examination. Plan to keep her on the monitor and see if we can reproduce any of these vital signs. Her initial EKG was done concerning. We will do a cardiac workup thinking about possible atypical angina since she does have a history of CAD. We'll look for CHF with a BNP and chest x- ray. Do not hear crackles or wheezing and her oxygen sats are 90s on room air tachycardia and no beta blockers. She does not have any fever but a CRP can help distinguish infection from any other source of concerning fluid if seen on the chest x-ray. If she starts to experience some wheezing, subjective shortness of breath, or dyspnea then we'll give her a breathing treatment. Plan to interrogate her Medtronic pacemaker. She does not have significant edema, JVD or evidence of respiratory distress to suggest CHF exacerbation however we can potentially rule this out with chest x-ray and BNP. Pulmonary embolism? She's having no chest pain or shortness of breath and has normal heart rate and oxygen saturation at this time. Well score 1.5 points. Low risk group: 1.3% chance of PE in an ED population. She has two Perc criteria and although she is low risk we are unable to rule out pulmonary embolism. We can get a d-dimer but will likely be elevated since she had surgery 2 days ago. If she demonstrates hypoxia or shortness of breath then it may be reasonable just to get a CT angiogram of the chest. Progress Note #2: Time: 14:49 Progress Note Patient continues to have no subjective or objective signs of shortness of breath. Oxygen sats are 97% on room air heart rate of 72 no longer paste and blood pressure is 134/72. She's been on the monitor the entire time. Unfortunately our equipment was unable to interrogate her pacemaker today. Her ABG came back as venous and she has declined further ABG sticks at this time. I think this is probably appropriate since she is not having any subjective or objective signs of dyspnea so far; we'll hold off on the ABG. Initial ECG Impression Date: Nov 06, 2019 Initial ECG Impression Time: 13:30 Initial ECG Rate: 70 Initial ECG Rhythm: Normal Sinus Initial ECG Intervals: Normal Initial ECG Impression: Nonspecific Changes Initial ECG Comparisson: Changed (from 2009) Comment Atrial paced rhythm without clinically relevant ST elevation or depression. Diagnostic Imaging Diagonstic Imaging: Xray Plain Films/CT/US/NM/MRI: chest (2v) Comments NAME: NASREEN MUNGUIA [facility] REC#: [id number] PT STATUS: REG ER : 1965 PHYSICIAN: ALEX DIANA MD ADMIT DATE: 11/06/19/ER FS Draft Date of Exam:11/06/19 CHEST PA/LAT (2 VIEW) EXAMINATION: Chest, two views. HISTORY: Lightheadedness. Pacemaker placement two days ago. CT chest on 05/31/2010. COMPARISON: None available. FINDINGS: A left pectoral dual-chamber pacemaker is visualized with leads intact. The lung volumes are normal. No focal consolidation is seen. No large pleural effusion or pneumothorax is seen. The cardiomediastinal silhouette is normal in size and contour. No acute osseous abnormality is seen. IMPRESSION: 1. No evidence of large pneumothorax or pulmonary edema. No focal consolidations. Dictated on workstation # [id number] Dict: 11/06/19 1412 Trans: 11/06/19 1417 [id number] Interpreted by: KRISH IBRAHIM DO Electronically signed by: Reviewed: Reviewed by Me Departure Impression Primary Impression: General medical examination Additional Impression: Status post cardiac pacemaker procedure Disposition: HOME, SELF-CARE Condition: Stable Departure-Patient Inst. Decision time for Depature: 15:22 Referrals: NO,LOCAL PHYSICIAN (PCP/Family) Primary Care Physician Patient Instructions: Pacemaker Insertion Add. Discharge Instructions: If you start to have shortness of breath, chest pain or redness swelling around the site of your surgery especially if accompanied by fever or nausea then you need to return to the nearest ER for examination. Keep your follow-up appointment on Tuesday with your bill distributor and discuss concerns. All discharge instructions reviewed with patient and/or family. Voiced understanding. ALEX DIANA Nov 06, 2019 13:52
--- NOTE | 2019-11-06 14:17 | Diagnostic Imaging Report ---
EXAMINATION: Chest, two views. HISTORY: Lightheadedness. Pacemaker placement two days ago. CT chest on 05/31/2010. COMPARISON: None available. FINDINGS: A left pectoral dual-chamber pacemaker is visualized with leads intact. The lung volumes are normal. No focal consolidation is seen. No large pleural effusion or pneumothorax is seen. The cardiomediastinal silhouette is normal in size and contour. No acute osseous abnormality is seen. IMPRESSION: 1. No evidence of large pneumothorax or pulmonary edema. No focal consolidations. Dictated by: Dictated on workstation # [id number]
[2019-11-06 14:30] LABS: HEMATOCRIT 37 % (35-52); HEMOGLOBIN 11.9 G/DL (11.5-16.0); MEAN CORPUSCULAR HEMOGLOBIN 29 PG (25-34); MEAN CORPUSCULAR VOLUME 88 FL (80-99); WHITE BLOOD COUNT 7.9 10^3/uL (4.3-11.0)
[2019-11-06 14:31] LABS: BASOPHILS # (AUTO) 0.1 10^3/uL (0.0-0.1); BASOPHILS % (AUTO) 1 % (0-10); EOSINOPHILS # (AUTO) 0.2 10^3/uL (0.0-0.3); EOSINOPHILS % (AUTO) 3 % (0-10); LYMPHOCYTES # (AUTO) 2.6 X 10^3 (1.0-4.0); LYMPHOCYTES % (AUTO) 33 % (12-44); MEAN CORPUSCULAR HGB CONC 33 G/DL (32-36); MEAN PLATELET VOLUME 10.6 FL (7.4-10.4); MONOCYTES # (AUTO) 0.6 X 10^3 (0.0-1.0); MONOCYTES % (AUTO) 8 % (0-12); NEUTROPHILS # (AUTO) 4.3 X 10^3 (1.8-7.8); NEUTROPHILS % (AUTO) 55 % (42-75); PLATELET COUNT 208 10^3/uL (130-400); RED CELL DISTRIBUTION WIDTH 14.3 % (10.0-14.5)
[2019-11-06 14:46] LABS: ALANINE AMINOTRANSFERASE 33 U/L (0-55); ALKALINE PHOSPHATASE 80 U/L (40-136); BILIRUBIN,TOTAL 0.3 MG/DL (0.1-1.0); BUN/CREATININE RATIO 21; CALCIUM 9.1 MG/DL (8.5-10.1); CARBON DIOXIDE 28 MMOL/L (21-32); CHLORIDE 99 MMOL/L (98-107); CREATININE SERUM 0.72 MG/DL (0.60-1.30); GFR ESTIMATED > 60; GLUCOSE 78 MG/DL (70-105); MAGNESIUM 1.9 MG/DL (1.6-2.4); POTASSIUM 3.6 MMOL/L (3.6-5.0); SODIUM 140 MMOL/L (135-145)
[2019-11-06 14:47] LABS: TOTAL PROTEIN 6.9 GM/DL (6.4-8.2)
[2019-11-06 15:37] VITALS: BP 137/63
== END 2019-11-06 15:39 | disposition home or self-care (01) ==
LOC: EDUNIT# 13:23 → ER FS 13:24
DX: R03.1 Nonspecific low blood-pressure reading (principal); J44.9 Chronic obstructive pulmonary disease, unspecified; I25.10 Atherosclerotic heart disease of native coronary artery without angina pectoris; E78.5 Hyperlipidemia, unspecified; I50.9 Heart failure, unspecified; F41.9 Anxiety disorder, unspecified; J45.909 Unspecified asthma, uncomplicated; E78.00 Pure hypercholesterolemia, unspecified; Z85.41 Personal history of malignant neoplasm of cervix uteri; Z87.891 Personal history of nicotine dependence; Z95.0 Presence of cardiac pacemaker; Z79.82 Long term (current) use of aspirin; Z88.6 Allergy status to analgesic agent; Z88.1 Allergy status to other antibiotic agents; Z88.8 Allergy status to other drugs, medicaments and biological substances; Z89.512 Acquired absence of left leg below knee
CPT/HCPCS: 36415; 71046; 80053; 83735; 83880; 84484; 85025; 86141

== ENCOUNTER → 2020-03-19 | Outpatient (CLI) | payer MEDICAID ==
[~2020-03-19] MED LIST changes: -TRAM50TA2 PO; +TRM50T PO
[2020-03-19 15:33] LABS: CHLORIDE 104 MMOL/L (98-107); POTASSIUM 3.7 MMOL/L (3.6-5.0); SODIUM 142 MMOL/L (135-145)
[2020-03-19 15:34] LABS: ALBUMIN 4.2 GM/DL (3.2-4.5); CALCIUM 9.2 MG/DL (8.5-10.1)
[2020-03-19 15:35] LABS: TRIGLYCERIDES 166 MG/DL (<150); VLDL CHOLESTEROL 33 MG/DL (5-40)
[2020-03-19 15:36] LABS: GLUCOSE 114 MG/DL (70-105); TOTAL PROTEIN 7.2 GM/DL (6.4-8.2)
[2020-03-19 15:37] LABS: BILIRUBIN,TOTAL 0.3 MG/DL (0.1-1.0); CARBON DIOXIDE 26 MMOL/L (21-32)
[2020-03-19 15:39] LABS: PHOSPHORUS 3.7 MG/DL (2.3-4.7)
[2020-03-19 15:40] LABS: ALKALINE PHOSPHATASE 73 U/L (40-136); CHOLESTEROL 159 MG/DL (< 200); CREATININE SERUM 0.77 MG/DL (0.60-1.30); GFR ESTIMATED > 60
[2020-03-19 15:41] LABS: BILIRUBIN,DIRECT 0.2 MG/DL (0.0-0.3); BILIRUBIN,INDIRECT 0.1 MG/DL; BUN/CREATININE RATIO 29
[2020-03-19 15:42] LABS: HDL CHOLESTEROL 48 MG/DL (40-60)
[2020-03-19 15:43] LABS: ALANINE AMINOTRANSFERASE 25 U/L (0-55)
== END ==
LOC: LAB FS 11:28
PROVIDERS: ATTEND Internal Medicine
DX: R60.9 Edema, unspecified (principal); E78.2 Mixed hyperlipidemia; Z79.899 Other long term (current) drug therapy
CPT/HCPCS: 36415; 80061; 80069; 80076

== ENCOUNTER 2021-08-18 13:51 | Emergency (ER) | payer MEDICAID ==
[~2021-08-18] VITALS: Ht 158 cm; Wt 92.0 kg
--- NOTE | 2021-08-18 14:12 | ED General ---
General Chief Complaint: Neurological Problems Stated Complaint: BLURRED VISION,CHEST TIGHTNESSS Source of Information: Patient Exam Limitations: No Limitations History of Present Illness Date Seen by Provider: Aug 18, 2021 Time Seen by Provider: 14:00 Initial Comments Patient is a 55-year-old female who presents to the emergency department today with a chief complaint of generalized weakness, blurry vision, frontal headache, near syncope. Patient states that she came to the hospital today with her sister as her sister had a procedure. As she was waiting in the waiting room she started feeling the above-stated symptoms. She thought she needed to eat. She states that she was walking down the [place] she had worsening symptoms of near syncope. She did not lose consciousness however. She developed some right- sided chest discomfort and right arm discomfort during the course of the symptoms. No shortness of breath, no recent illnesses. She is not Covid vaccinated. Patient states that she is having difficulty "focusing". She states she called her eye doctor, Dr. SORIA and was advised to check into the emergency department. Patient has a history of SVT/atrial tachycardia. She has a pacemaker. She doctors in [facility]. Patient was recently diagnosed with type 2 diabetes last Tuesday. Is not on any medications for diabetes. No history of known coronary artery disease, the patient states she has never had a stress test or angiogram. She is not on blood thinners. States as I am talking to her that her symptoms seem to be "letting up", she is feeling a little bit better. No other complaints of recent illness, GI or complaints. Chronic joint pains. Timing/Duration: 1-3 Hours Severity: Moderate Associated Systoms: Chest Pain (vague with right arm discomfort), Headaches, Malaise, Weakness Allergies and Home Medications Allergies Coded Allergies: aspirin (Unverified Allergy, Unknown, N/V, 08/18/21) azithromycin (Unverified Allergy, Unknown, SOB, SWELLING, HIVES, 08/18/21) erythromycin base (Unverified Allergy, Unknown, SORES AROUND MOUTH, 08/18/21) gabapentin (Unverified Allergy, Unknown, SORES AROUND MOUTH, 08/18/21) pregabalin (Unverified Allergy, Unknown, SORES AROUND MOUTH, ITCHING, 08/18/21) tetracycline (Unverified Allergy, Unknown, SORES AROUND MOUTH, 08/18/21) Patient Home Medication List Home Medication List Reviewed: Yes Albuterol (Ventolin) 17 Gm Aerosol, 17 GM IH NEEDED, (Reported) Entered as Reported by: LINO SANCHES on 05/21/10 1033 Alprazolam (Xanax) 0.5 Mg Tablet, 0.5 MG PO for ANXIETY, (Reported) Entered as Reported by: LEAH MENCHACA on 10/01/15 1702 Hydrocodone/Acetaminophen (Vicodin Hp 10-300 mg Tablet) 1 Each Tablet, 1 EACH PO for PAIN, (Reported) Entered as Reported by: LEAH MENCHACA on 10/01/15 1702 Lisinopril (Zestril) 20 Mg Tablet, 1 EACH PO DAILY, (Reported) Entered as Reported by: LINO SANCHES on 05/21/10 1033 Simvastatin (Zocor) 20 Mg Tab, 20 MG PO HS, (Reported) Entered as Reported by: LINO SANCHES on 05/21/10 1033 Tramadol HCl (Tramadol HCl) 50 Mg Tablet, 50 MG PO Q6H PRN for PAIN-MILD Prescribed by: KANDI MENCHACA on 12/01/18 1802 Review of Systems Review of Systems Constitutional: see HPI EENTM: no symptoms reported Respiratory: no symptoms reported Cardiovascular: chest pain Gastrointestinal: nausea Genitourinary: no symptoms reported Musculoskeletal: other (chronic pain issues) Skin: no symptoms reported Psychiatric/Neurological: Headache All Other Systems Reviewed Negative Unless Noted: Yes Past Nmhqpxf-Oeeuuf-Tzfxmc Hx Past Medical History Surgeries: Yes (2 leg amputations, 3 surgeries on lefT LEG) Amputation, Section, Gallbladder, Hysterectomy, Orthopedic Respiratory: Yes Asthma, COPD Cardiac: No High Cholesterol Neurological: No Reproductive Disorders: No Sexually Transmitted Disease: No Genitourinary: No Gastrointestinal: No Musculoskeletal: Yes (osteomylitis) Amputee Endocrine: No Cancer: Yes Cervical Psychosocial: No Integumentary: Yes (OSTEOMYELITIS) Blood Disorders: No Physical Exam Vital Signs Vital Signs - First Documented 08/18/21 14:07 Temp 36.5 Pulse 91 Resp 15 B/P (MAP) 164/88 (113) Pulse Ox 96 O2 Delivery Room Air Capillary Refill : Height, Weight, BMI Height: 5'2.00" Weight: 199lbs. 0oz. 90.159786ls; 35.00 BMI Method:Stated General Appearance: No Apparent Distress, WD/WN Eyes: Bilateral Eye Normal Inspection, Bilateral Eye PERRL, Bilateral Eye EOMI HEENT: PERRL/EOMI, Normal ENT Inspection, Pharynx Normal Neck: Full Range of Motion, Normal Inspection Respiratory: Lungs Clear, Normal Breath Sounds, No Accessory Muscle Use, No Respiratory Distress Cardiovascular: Regular Rate, Rhythm, Normal Peripheral Pulses Gastrointestinal: Non Tender, Soft Extremity: Normal Inspection, Other (left AKA with prostesis in place) Neurologic/Psychiatric: Alert, Oriented x3, No Motor/Sensory Deficits, Normal Mood/Affect, safety scientist II-XII Norm as Tested, Other (normal strength and sensation (patient states slightly decreased sensation right face)) Skin: Normal Color, Warm/Dry Progress/Results/Core Measures Suspected Sepsis SIRS Temperature: Pulse: Respiratory Rate: Laboratory Tests 08/18/21 14:40: White Blood Count 6.8 Blood Pressure / Mean: Laboratory Tests 08/18/21 14:40: Creatinine 0.82, Platelet Count 253 Results/Orders Lab Results Laboratory Tests Test 08/18/21 14:01 08/18/21 14:40 08/18/21 14:58 08/18/21 15:28 Range/Units Glucometer 122 H 70-110 MG/DL White Blood Count 6.8 4.3-11.0 10^3/uL Red Blood Count 4.83 3.80-5.11 10^6/uL Hemoglobin 13.7 11.5-16.0 g/dL Hematocrit 43 35-52 % Mean Corpuscular Volume 88 80-99 fL Mean Corpuscular Hemoglobin 28 25-34 pg Mean Corpuscular Hemoglobin Concent 32 32-36 g/dL Red Cell Distribution Width 14.6 H 10.0-14.5 % Platelet Count 253 130-400 10^3/uL Mean Platelet Volume 10.3 9.0-12.2 fL Immature Granulocyte % (Auto) 0 % Neutrophils (%) (Auto) 55 42-75 % Lymphocytes (%) (Auto) 35 12-44 % Monocytes (%) (Auto) 7 0-12 % Eosinophils (%) (Auto) 2 0-10 % Basophils (%) (Auto) 1 0-10 % Neutrophils # (Auto) 3.8 1.8-7.8 10^3/uL Lymphocytes # (Auto) 2.4 1.0-4.0 10^3/uL Monocytes # (Auto) 0.5 0.0-1.0 10^3/uL Eosinophils # (Auto) 0.1 0.0-0.3 10^3/uL Basophils # (Auto) 0.0 0.0-0.1 10^3/uL Immature Granulocyte # (Auto) 0.0 0.0-0.1 10^3/uL Sodium Level 141 135-145 MMOL/L Potassium Level 3.0 L 3.6-5.0 MMOL/L Chloride Level 99 98-107 MMOL/L Carbon Dioxide Level 28 21-32 MMOL/L Anion Gap 14 5-14 MMOL/L Blood Urea Nitrogen 15 7-18 MG/DL Creatinine 0.82 0.60-1.30 MG/DL Estimat Glomerular Filtration Rate 72 BUN/Creatinine Ratio 18 Glucose Level 92 70-105 MG/DL Calcium Level 10.0 8.5-10.1 MG/DL Troponin I < 0.028 <0.028 NG/ML C-Reactive Protein High Sensitivity 0.21 0.00-0.50 MG/DL Urine Color YELLOW Urine Clarity CLEAR Urine pH 6.5 5-9 Urine Specific [place] 1.010 L 1.016-1.022 Urine Protein NEGATIVE NEGATIVE Urine Glucose (UA) NEGATIVE NEGATIVE Urine Ketones NEGATIVE NEGATIVE Urine Nitrite NEGATIVE NEGATIVE Urine Bilirubin NEGATIVE NEGATIVE Urine Urobilinogen 0.2 < = 1.0 MG/DL Urine Leukocyte Esterase NEGATIVE NEGATIVE Urine RBC (Auto) NEGATIVE NEGATIVE Urine RBC NONE /HPF Urine WBC NONE /HPF Urine Squamous Epithelial Cells 0-2 /HPF Urine Renal Epithelial Cells NONE /HPF Urine Crystals NONE /LPF Urine Bacteria NEGATIVE /HPF Urine Casts NONE /LPF Urine Mucus NEGATIVE /LPF Urine Culture Indicated NO SARS-CoV-2 RNA (RT-PCR) Not Detected Not Detecte My Orders Orders - ROB DUMONT MD Ed Iv/Invasive Line Start (08/18/21 14:12) Cbc With Automated Diff (08/18/21 14:12) Basic Metabolic Panel (08/18/21 14:12) Ekg Tracing (08/18/21 14:12) Ua Culture If Indicated (08/18/21 14:12) Hs C Reactive Protein (08/18/21 14:12) Troponin I (08/18/21 14:12) Ct Head Wo (08/18/21 14:12) Covid 19 Inhouse Test (08/18/21 15:40) Vital Signs/I&O 08/18/21 14:07 Temp 36.5 Pulse 91 Resp 15 B/P (MAP) 164/88 (113) Pulse Ox 96 O2 Delivery Room Air Capillary Refill : Progress Note : Time: 14:48 Progress Note patient declined an IV placement per nursing staff stating to them she "didnt want to be a pin cushion". she also was asking about getting an MRI instead of a CT. 1625 Patient's labs reviewed, generally within normal limits although she has a slightly low potassium at 3.0. Covid test negative. CT scan of the brain unremarkable as well as her chest x-ray is reassuring. Vital signs have been stable. Patient continues to have a feeling of profound fatigue. No clinical or objective findings to warrant further testing from the emergency department. Patient is neurologically normal. EKG is normal. No evidence for sepsis, acute coronary syndrome, stroke. Patient is reassured. Is encouraged to follow-up with her primary care physician. She is asking to be discharged home. All questions are sought and answered. Patient is stable for discharge ECG Initial ECG Impression Date: Aug 18, 2021 Initial ECG Impression Time: 13:56 Initial ECG Rate: 81 Initial ECG Intervals [place] 197 QRS 111 QTc 487 Not currently a paced rhythm. No ectopy noted, no ST segment elevation or depression is noted. She does have nonspecific ST-T wave changes over the precordium Initial ECG Impression: Nonspecific Changes Departure Impression Primary Impression: Near syncope Additional Impression: Malaise Disposition: 01 HOME, SELF-CARE Condition: Stable Departure-Patient Inst. Decision time for Depature: 16:26 Referrals: NO,LOCAL PHYSICIAN (PCP/Family) Primary Care Physician Patient Instructions: Fatigue ED Add. Discharge Instructions: Drink plenty of fluids to stay well-hydrated. Continue to take your daily medications as prescribed. Come back to the emergency room if you have any worsening symptoms, new emergent complaints. Please call and follow-up with your primary care physician this week. ROB DUMONT MD Aug 18, 2021 14:12
[2021-08-18 14:46] LABS: BASOPHILS % (AUTO) 1 % (0-10); EOSINOPHILS # (AUTO) 0.1 10^3/uL (0.0-0.3); EOSINOPHILS % (AUTO) 2 % (0-10); HEMATOCRIT 43 % (35-52); HEMOGLOBIN 13.7 g/dL (11.5-16.0); LYMPHOCYTES # (AUTO) 2.4 10^3/uL (1.0-4.0); LYMPHOCYTES % (AUTO) 35 % (12-44); MEAN CORPUSCULAR HEMOGLOBIN 28 pg (25-34); MEAN CORPUSCULAR HGB CONC 32 g/dL (32-36); MEAN CORPUSCULAR VOLUME 88 fL (80-99); MEAN PLATELET VOLUME 10.3 fL (9.0-12.2); MONOCYTES # (AUTO) 0.5 10^3/uL (0.0-1.0); MONOCYTES % (AUTO) 7 % (0-12); NEUTROPHILS # (AUTO) 3.8 10^3/uL (1.8-7.8); NEUTROPHILS % (AUTO) 55 % (42-75); PLATELET COUNT 253 10^3/uL (130-400); WHITE BLOOD COUNT 6.8 10^3/uL (4.3-11.0)
[2021-08-18 14:57] LABS: CHLORIDE 99 MMOL/L (98-107); SODIUM 141 MMOL/L (135-145)
[2021-08-18 14:59] LABS: GLUCOSE 92 MG/DL (70-105)
[2021-08-18 15:01] LABS: CARBON DIOXIDE 28 MMOL/L (21-32)
[2021-08-18 15:03] LABS: CREATININE SERUM 0.82 MG/DL (0.60-1.30); GFR ESTIMATED 72
[2021-08-18 15:04] LABS: BUN/CREATININE RATIO 18
[2021-08-18 15:06] LABS: BILIRUBIN,URINE NEGATIVE (NEGATIVE); CLARITY,URINE CLEAR; COLOR,URINE YELLOW; GLUCOSE, URINE (UA) NEGATIVE (NEGATIVE); KETONES,URINE NEGATIVE (NEGATIVE); LEUKOCYTE ESTERASE ,URINE NEGATIVE (NEGATIVE); NITRITE,URINE NEGATIVE (NEGATIVE); PH,URINE 6.5 (5-9); PROTEIN,URINE NEGATIVE (NEGATIVE)
--- NOTE | 2021-08-18 15:14 | Diagnostic Imaging Report ---
PROCEDURE: CT head without contrast. TECHNIQUE: Multiple contiguous axial images were obtained through the brain without the use of intravenous contrast. Auto Exposure Controls were utilized during the CT exam to meet ALARA standards for radiation dose reduction. INDICATION: Blurred vision. No prior studies are available for comparison. The ventricles and sulci are within normal limits. No sulcal effacement or midline shift is identified. No acute intra-axial or extra-axial hemorrhage is detected. Cisterns are patent. Visualized paranasal sinuses are clear. IMPRESSION: No acute intracranial process is detected. Dictated by: Dictated on workstation # [id number]
[2021-08-18 15:17] LABS: BACTERIA,URINE NEGATIVE /HPF; SQUAMOUS EPITHELIAL CELL,UR 0-2 /HPF
[2021-08-18 17:12] VITALS: BP 132/76
== END 2021-08-18 17:11 | disposition home or self-care (01) ==
LOC: EDUNIT# 13:51 → ER 13:54
DX: R55 Syncope and collapse (principal); R53.81 Other malaise; Z20.822 Contact with and (suspected) exposure to COVID-19; J44.9 Chronic obstructive pulmonary disease, unspecified; E78.00 Pure hypercholesterolemia, unspecified; Z79.899 Other long term (current) drug therapy
CPT/HCPCS: 36415; 70450; 80048; 81000; 82947; 84484; 85025; 86141; 87636; 93005